=== PATIENT | female | born 1945 | race Caucasian/White ===

== ENCOUNTER 2019-09-15 14:24 | Inpatient (IN) | payer MEDICARE, OTHER ==
[2019-09-15] MEDS ORDERED: Diltiazem 125 MG/25 ML ONE ×2 (14:43→20:25)
[2019-09-15] MEDS ORDERED: Magnesium 2 GM/50 ML BAG (IN WATER) ONE (15:08)
[2019-09-15] MEDS ORDERED: Ondansetron PF 4 MG/2 ML Vial IVP PRN ×2 (15:43→22:23)
[2019-09-15] MEDS ORDERED: Acetaminophen 650 MG Suppository PR PRN ×2 (15:43→22:23)
[2019-09-15] MEDS ORDERED: Ondansetron ODT 4 MG TAB PO PRN ×2 (15:43→22:23)
[2019-09-15] MEDS ORDERED: HYDROcodone/Acetaminophen 5/325 mg Tablet PO PRN ×4 (15:43→22:23)
[2019-09-15] MEDS ORDERED: Acetaminophen 325 MG TAB PO PRN (15:43)
--- NOTE | 2019-09-15 15:55 | PDOC.HHP ---
Hospitalist HPI - History of Present Illness palpitations History of Present Illness: Case of an 73y/o female with pmhx of htn, ba, oa, afib, systolic chf, non ischemic cardiomyopathy who comes to hospital due to palpitations. patient refers she was on her usual state of health until 3 days ago when she started to notice irregular and fast heartbeats. initially there where just episodes that lasted a few minutes but its started to last longer and be more common. today patient decided to come for evaluation because she has been having palpitations non stop since the morning that is associated with sob and palpitations denies n/v or diaphoresis Hospitalist ROS - Review of Systems All other systems reviewed; all pertinent +/- noted in HPI/Subj Hospitalist History - Past Medical History Cardiac: reports: AFIB, CAD, CHF, HTN, Valve insufficiency Pulmonary: reports: asthma - Past Surgical History Past Surgical History: reports: , Tubal Ligation, Tonsillectomy - Family History Family History: reports: cardiac disorder - Social History Smoking Status: Never smoker Alcohol: reports: None Drugs: reports: none Living Situation: With Family Occupation: retired Activity level: independent ambulation - Exam General Appearance: NAD, awake alert Eye: PERRL, anicteric sclera ENT: normocephalic atraumatic, no oropharyngeal lesions Neck: supple, symmetric, no JVD, no thyromegaly Heart: irregular Heart - other findings: tachycardic Respiratory: CTAB, no wheezes, no rales, no ronchi Gastrointestinal: soft, non-tender, non-distended, normal bowel sounds Extremities: no cyanosis, no clubbing, no edema Skin: normal turgor, no lesions Neurological: cranial nerve grossly intact, normal sensation to touch Musculoskeletal: normal tone, normal strength Psychiatric: normal affect, normal behavior, A&O x 3 Hospitalist Results - EKG Interpretation EKG: afib in rvr Hospitalist H&P A/P - Problem (1) Atrial fibrillation with rapid ventricular response Code(s): I48.91 - UNSPECIFIED ATRIAL FIBRILLATION Status: Acute (2) Asthma Code(s): J45.909 - UNSPECIFIED ASTHMA, UNCOMPLICATED Status: Active (3) Chronic kidney disease stage 2 Code(s): N18.2 - CHRONIC KIDNEY DISEASE, STAGE 2 (MILD) Status: Chronic (4) Renovascular hypertension Code(s): I15.0 - RENOVASCULAR HYPERTENSION Status: Chronic (5) Systolic heart failure Code(s): I50.20 - UNSPECIFIED SYSTOLIC (CONGESTIVE) HEART FAILURE Status: Chronic - Plan Plan: 73y/o female who presents with afib in RVR for 3 days of duration - cardiac monitoring w tele - diltiazem drip - lovenox full AC - 2d echo -cardiology consult -continue home meds for chronic conditions - serial troponins, follow trend
[2019-09-15 15:59] LABS: Troponin I 0.079 ng/mL (< 0.028)
[2019-09-15] MEDS ORDERED: Diltiazem 125 MG in Sodium Chloride 0.9% 100 ML IVPB SCH (16:00)
[2019-09-15 19:14] LABS: Troponin I 0.096 ng/mL (< 0.028)
[2019-09-15] MEDS ORDERED: Lisinopril 5 MG TAB PO SCH (21:00)
[2019-09-15] MEDS ORDERED: Enoxaparin Sodium 40 MG/0.4 ML SYRINGE SC SCH (21:00)
[2019-09-15] MEDS ORDERED: Enoxaparin Sodium 60 MG/0.6 ML SYRINGE SC SCH (22:30)
[2019-09-15] MEDS: Acetaminophen 325 MG TAB PO PRN (23:14)
[2019-09-16] MEDS: Aspirin 81 mg Enteric Coated Tablet PO SCH (08:16)
[2019-09-16] MEDS: Enoxaparin Sodium 60 MG/0.6 ML SYRINGE SC SCH ×2 (08:16→21:44)
[2019-09-16] MEDS ORDERED: Enoxaparin Sodium 40 MG/0.4 ML SYRINGE SC SCH (09:00)
[2019-09-16] MEDS ORDERED: Aspirin 81 mg Enteric Coated Tablet PO SCH (09:00)
[2019-09-16] MEDS: Diltiazem 125 MG in Sodium Chloride 0.9% 100 ML IVPB SCH ×2 (11:13→21:44)
[2019-09-16] MEDS ORDERED: Amiodarone 200 MG TAB PO SCH (11:40)
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
[2019-09-16] MEDS: Acetaminophen 325 MG TAB PO PRN (15:11)
[2019-09-16] MEDS: Amiodarone 200 MG TAB PO SCH ×2 (15:11→21:43)
--- NOTE | 2019-09-16 17:48 | PDOC.HOSPP ---
- Subjective Encounter Date: 09/16/19 Subjective: patient seen on f/u for afib in rvr, despite increasing drip overnight, pt continues to be in rvr. Does refers chest pain and sob has improved - Objective Vital Signs & Weight: Vital Signs (12 hours) Temp Pulse Resp BP Pulse Ox 09/16/19 15:14 98.3 F 128 H 18 132/73 98 09/16/19 11:15 98.1 F 117 H 18 136/70 98 09/16/19 06:58 97.6 F 133 H 18 109/65 95 Weight Admit Weight 109 lb 8 oz Weight 110 lb 11.2 oz I&O: 09/15/19 09/16/19 09/17/19 06:59 06:59 06:59 Intake Total 440 Balance 440 Hospitalist ROS - Review of Systems All other systems reviewed; all pertinent +/- noted in HPI/Subj - Medication Medications: Active Medications Generic Name Dose Route Start Last Admin Trade Name Freq PRN Reason Stop Dose Admin Acetaminophen 650 mg 09/15/19 22:22 09/16/19 15:11 Tylenol PO 650 mg Q4H PRN Administration Headache/Fever/Mild Pain (1-3) Amiodarone HCl 400 mg 09/16/19 15:00 09/16/19 15:11 Cordarone PO 400 mg TID NAPOLEON Administration Aspirin 81 mg 09/16/19 09:00 09/16/19 08:16 Ecotrin PO 81 mg DAILY NAPOLEON Administration Enoxaparin Sodium 50 mg 09/16/19 09:00 09/16/19 08:16 Lovenox SC 50 mg 0900,2100 NAP[facility]LEON Administration Diltiazem HCl 125 mg/ Sodium 125 mls @ 15 mls/hr 09/15/19 22:30 09/16/19 11: 13 Chloride IVPB 125 mls INF NAPOLEON Administration Protocol - Exam General Appearance: awake alert Eye: PERRL, anicteric sclera ENT: normocephalic atraumatic, no oropharyngeal lesions Neck: supple, symmetric, no JVD Heart: irregular Heart - other findings: tachycardic Respiratory: CTAB, no wheezes, no rales Gastrointestinal: soft, non-tender, non-distended Extremities: no cyanosis, no clubbing Skin: normal turgor, no lesions Neurological: cranial nerve grossly intact, normal sensation to touch Musculoskeletal: normal tone, normal strength Psychiatric: normal affect, normal behavior Hosp A/P (1) Atrial fibrillation with rapid ventricular response Code(s): I48.91 - UNSPECIFIED ATRIAL FIBRILLATION Status: Acute (2) Asthma Code(s): J45.909 - UNSPECIFIED ASTHMA, UNCOMPLICATED Status: Active (3) Chronic kidney disease stage 2 Code(s): N18.2 - CHRONIC KIDNEY DISEASE, STAGE 2 (MILD) Status: Chronic (4) Renovascular hypertension Code(s): I15.0 - RENOVASCULAR HYPERTENSION Status: Chronic (5) Systolic heart failure Code(s): I50.20 - UNSPECIFIED SYSTOLIC (CONGESTIVE) HEART FAILURE Status: Chronic - Plan - continue with diltiazem drip still on rvr - cardiology on board, following recommendations - pending echo report -amiodarone added - troponin elevated but stable likely leak from increased HR - full AC w lovenox - continue home meds for chronic conditions
[2019-09-16] MEDS ORDERED: Lisinopril 5 MG TAB PO SCH (21:00)
[2019-09-16] MEDS ORDERED: Furosemide 20 MG/2 ML VIAL SLOW IVP SCH (22:15)
[2019-09-16] MEDS ORDERED: Furosemide 40 MG/4 ML VIAL SLOW IVP SCH (22:30)
[2019-09-16 22:32] LABS: Actual Bicarbonate (HCO3a) 20.5 mEq/L (22-28); Base Excess (BEa) -4.1 mEq/L (-2.0 to +3.0); CO2 Tension 35.7 mmHg (35.0-45.0); Calcium, Ionized (arterial) 1.08 mmol/L (1.12-1.30); Carboxyhemoglobin (COHb) 0.9 gm% (0.0-3.0); Hemoglobin (Hb) 12.4 g/dL (12.0-16.0); Potassium - ABG Lab 3.67 mmol/L (3.70-5.30); pH, Arterial 7.38 (7.35-7.45)
[2019-09-16 22:37] LABS: O2 Tension (PaO2), arterial 48.8 mmHg (> 70.0)
[2019-09-16 22:38] LABS: Puncture Site RRA
[2019-09-16 22:39] LABS: ALV-art Gradient 163.255 (0-20)
[2019-09-16] MEDS ORDERED: Digoxin 0.5 MG/2 ML AMP SLOW IVP SCH (23:15)
--- NOTE | 2019-09-17 01:51 | PDOC.EVN ---
Event Note - Event Note Event Note: Night nurse, Liya, noted that patient was hypoxic when she took over care. O2 NC was off the patient but even with it on, she was still hypoxic. CXR and ABG ordered, and patient was transferred to [facility] and placed on Bipap. Discussed with Dr. Goode, agrees with plan.
[2019-09-17 04:26] LABS: Anion Gap 14 mmol/L (10-20); BUN (Urea Nitrogen) 46 mg/dL (9.8-20.1); Calc. Creatinine Clearance 41 mL/min (70-130); Calcium 8.2 mg/dL (7.8-10.44); Carbon Dioxide 25 mmol/L (23-31); Chloride 98 mmol/L (98-107); Estimated GFR-MDRD 55; Glucose 142 mg/dL (83-110); Potassium 3.1 mmol/L (3.5-5.1); Sodium 134 mmol/L (136-145)
[2019-09-17 05:30] LABS: Band 2 % (5-11); Hemoglobin 12.9 g/dL (12.0-16.0); Lymphocytes 9 % (21-51); MDiff Complete? YES; Mean Corpuscular HGB CONC 34.2 g/dL (32.0-36.0); Mean Corpuscular Hemoglobin 29.3 pg (27.0-31.0); Mean Corpuscular Volume 85.7 fL (78.0-98.0); Mean Platelet Volume 9.8 fL (7.4-10.4); Monocytes 8 % (0-10); Neutrophil 81 % (42-75); Platelet Count 213 thou/uL (130-400); Platelet Morphology Comment Appears Adequate; RBC Distribution Width 14.3 % (11.5-14.5); White Blood Cell (WBC) Count 8.7 thou/uL (4.8-10.8)
--- NOTE | 2019-09-17 07:28 | RAD ---
PORTABLE CHEST: Date: 09/16/2019 PROVIDED CLINICAL HISTORY: Dyspnea. FINDINGS: Comparison with 09/15/2019. Cardiac silhouette remains enlarged. There is development of right lower lung zone air space disease. Blunting of the right costophrenic angle has also developed in the interim. Emphysematous changes ar e redemonstrated. There is no evidence for pneumothorax. IMPRESSION: 1. Development of right basilar air space disease, which could reflect pneumonia or aspiration. 2. Development of right pleural fluid. POS: BRIDGET[place]
[2019-09-17] MEDS: Potassium Chloride 20 MEQ TAB PO SCH ×2 (08:22→11:19)
[2019-09-17] MEDS: Aspirin 81 mg Enteric Coated Tablet PO SCH (08:22)
[2019-09-17] MEDS: Enoxaparin Sodium 60 MG/0.6 ML SYRINGE SC SCH ×2 (08:23→20:15)
[2019-09-17] MEDS: Spironolactone 25 MG TAB PO SCH (08:23)
[2019-09-17] MEDS: Amiodarone 200 MG TAB PO SCH ×3 (08:23→20:15)
[2019-09-17] MEDS ORDERED: Furosemide 40 MG TAB PO SCH (09:00)
[2019-09-17] MEDS ORDERED: Ketorolac Tromethamine 30 MG/ML VIAL IVP SCH (09:00)
--- NOTE | 2019-09-17 09:16 | PRG ---
DATE OF SERVICE: 09/17/2019 SUBJECTIVE: Ms. Castano became much more short of breath last night, had to be moved to the intermediate care unit. Chest x-ray looks like she is in congestive heart failure. She responded to intravenous diuretics. She is on a nasal cannula now, but is feeling better. She had a good urine output with the diuretic. She is wearing a diaper. OBJECTIVE: VITAL SIGNS: Her blood pressure 115/70, pulse is 100 to 110 and it is irregular. LUNGS: A few basilar rales. CARDIAC: Irregularly irregular. ABDOMEN: Soft and nontender. EXTREMITIES: No edema. She does complain of severe right shoulder pain, it sounds musculoskeletal, not cardiac. ASSESSMENT: 1. Cardiomyopathy, severe. 2. Atrial fibrillation, persistent. 3. Shoulder pain, musculoskeletal. 4. Congestive heart failure, systolic and diastolic, acute on chronic, improving this morning. PLAN: 1. Continue diuresis. 2. Continue amiodarone. 3. Continue Cardizem at prior reduced dose if heart rate decreases. 4. Give her extra Lasix today. We will follow with you. Cardioversion next week. We will do COVID screening and she will need a HERBERT 1st. Job ID: [id number]
[2019-09-17] MEDS ORDERED: Furosemide 40 MG/4 ML VIAL SLOW IVP SCH (12:00)
[2019-09-17] MEDS: Diltiazem 125 MG in Sodium Chloride 0.9% 100 ML IVPB SCH (12:56)
--- NOTE | 2019-09-17 14:05 | PDOC.HOSPP ---
- Subjective Encounter Date: 09/17/19 Encounter Time: 08:00 non-verbal Subjective: overnight, hypoxic requiring escalation to HFNC. CXR showing right low field patchy infiltrates. This morning, feeling and breathing well on HFNC. denies chest pain, palpitations, pleuritic pain, cough, sputum prodcution. - Objective Vital Signs & Weight: Vital Signs (12 hours) Temp Pulse Ox 09/17/19 11:47 97.6 F 09/17/19 08:00 93 L 09/17/19 07:46 97.6 F 09/17/19 07:36 96 09/17/19 03:57 97.8 F 09/17/19 02:23 93 L Weight Admit Weight 109 lb 8 oz Weight 110 lb 11.2 oz Most Recent Monitor Data Heart Rate from ECG 81 NIBP 108/80 NIBP BP-Mean 89 Respiration from ECG 20 SpO2 92 I&O: 09/16/19 09/17/19 09/18/19 06:59 06:59 06:59 Intake Total 440 283 Balance 440 283 Result Diagrams: 09/17/19 03:55 09/17/19 03:55 Hospitalist ROS - Review of Systems Constitutional: denies: fever, chills, sweats Respiratory: reports: SOB with excertion. denies: cough, dry, shortness of breath, hemoptysis, pleuritic pain, sputum, wheezing Cardiovascular: denies: chest pain, palpitations, orthopnea Gastrointestinal: denies: nausea, vomiting, abdominal pain - Medication Medications: Active Medications Generic Name Dose Route Start Last Admin Trade Name Freq PRN Reason Stop Dose Admin Acetaminophen 650 mg 09/15/19 22:22 09/16/19 15:11 Tylenol PO 650 mg Q4H PRN Administration Headache/Fever/Mild Pain (1-3) Hydrocodone Bitart/Acetaminophen 1 tab 09/15/19 22:23 09/16/19 21:44 [place] 5/325 PO 1 tab Q4H PRN Administration Moderate Pain (4-6) Amiodarone HCl 400 mg 09/16/19 15:00 09/17/19 08:23 Cordarone PO 400 mg TID NAPOLEON Administration Aspirin 81 mg 09/16/19 09:00 09/17/19 08:22 Ecotrin PO 81 mg DAILY NAPOLEON Administration Enoxaparin Sodium 50 mg 09/16/19 09:00 09/17/19 08:23 Lovenox SC 50 mg 0900,2100 [facility] Administration Diltiazem HCl 125 mg/ Sodium 125 mls @ 15 mls/hr 09/15/19 22:30 09/17/19 12: 56 Chloride IVPB 125 mls INF NAPOLEON Administration Protocol Lisinopril 7.5 mg 09/16/19 21:00 09/16/19 21:50 Zestril PO Not Given HS [facility] Ondansetron HCl 4 mg 09/15/19 22:23 09/16/19 21:43 Zofran Odt PO 4 mg Q6H PRN Administration Nausea/Vomiting Spironolactone 25 mg 09/17/19 09:00 09/17/19 08:23 Aldactone PO 25 mg DAILY [facility] Administration - Exam General Appearance: NAD, awake alert Heart: no murmur, no gallops, irregular Heart - other findings: afib, HR 100-110s Respiratory: no wheezes, no ronchi Respiratory - other findings: b/l inspiratory rales,midfield lower;right lung sounds reduced midfield Gastrointestinal: soft, non-tender, non-distended Extremities: no edema Psychiatric: normal affect, normal behavior, A&O x 3 Hosp A/P - Plan #hypoxemia #afib w/ RVR #arrythmia-indced heart failure worsening hypoxemia likely due to arrhythmia induced HF resulting in flash pulm edema and right pleural effusion rate better controlled -continue diuresis as per cardiology -rate control as per cardiology -strict I/O -try to wean HFNC #shoulder pain -positional, subacute, unlikely cardiac etiology -has bursitis in past, on exam, c/w musculoskeletal, likely subacute on chronic osteoarthritis/tendonitis -antinflammatory toradol given x 1 -if doesn't improve, will start NSAID with PPI
[2019-09-17] MEDS ORDERED: Potassium Chloride 20 MEQ TAB PO SCH (17:00)
[2019-09-17 18:26] LABS: Potassium 4.4 mmol/L (3.5-5.1)
[2019-09-18] MEDS: Diltiazem 125 MG in Sodium Chloride 0.9% 100 ML IVPB SCH ×2 (03:09→16:28)
[2019-09-18 04:31] LABS: Anion Gap 14 mmol/L (10-20); BUN (Urea Nitrogen) 42 mg/dL (9.8-20.1); Calc. Creatinine Clearance 49 mL/min (70-130); Calcium 8.3 mg/dL (7.8-10.44); Carbon Dioxide 23 mmol/L (23-31); Chloride 99 mmol/L (98-107); Estimated GFR-MDRD 67; Glucose 99 mg/dL (83-110); Potassium 4.4 mmol/L (3.5-5.1); Sodium 132 mmol/L (136-145)
--- NOTE | 2019-09-18 08:04 | PDOC.HOSPP ---
- Subjective Encounter Date: 09/18/19 Encounter Time: 08:00 Subjective: no overnight events. This morning, feeling about the same, remains on HFNC. HR in 100-110s despite reducing cardizem drip 15->10mg due to hypotension. Pending COVID-19 rule out for subsequent HERBERT - Objective Vital Signs & Weight: Vital Signs (12 hours) Temp Pulse Ox 09/18/19 07:33 95 09/18/19 07:06 98.2 F 09/18/19 03:42 97.2 F L 09/17/19 23:28 98.1 F Weight Admit Weight 109 lb 8 oz Weight 110 lb 11.2 oz Most Recent Monitor Data Heart Rate from ECG 113 NIBP 103/72 NIBP BP-Mean 82 Respiration from ECG 18 SpO2 95 I&O: 09/17/19 09/18/19 09/19/19 06:59 06:59 06:59 Intake Total 283 1752 Output Total 1800 Balance 283 -48 Result Diagrams: 09/17/19 03:55 09/18/19 03:27 Hospitalist ROS - Review of Systems Constitutional: denies: fever, chills, sweats, weakness, malaise, other Respiratory: denies: cough, dry, shortness of breath, pleuritic pain, sputum, wheezing Cardiovascular: denies: chest pain, palpitations, orthopnea Gastrointestinal: denies: nausea, vomiting, abdominal pain - Medication Medications: Active Medications Generic Name Dose Route Start Last Admin Trade Name Freq PRN Reason Stop Dose Admin Acetaminophen 650 mg 09/15/19 22:22 09/16/19 15:11 Tylenol PO 650 mg Q4H PRN Administration Headache/Fever/Mild Pain (1-3) Hydrocodone Bitart/Acetaminophen 1 tab 09/15/19 22:23 09/16/19 21:44 [place] 5/325 PO 1 tab Q4H PRN Administration Moderate Pain (4-6) Amiodarone HCl 400 mg 09/16/19 15:00 09/17/19 20:15 Cordarone PO 400 mg TID NAPOLEON Administration Aspirin 81 mg 09/16/19 09:00 09/17/19 08:22 Ecotrin PO 81 mg DAILY [facility]ON Administration Enoxaparin Sodium 50 mg 09/16/19 09:00 09/17/19 20:15 Lovenox SC 50 mg 0900,2100 [facility] Administration Diltiazem HCl 125 mg/ Sodium 125 mls @ 10 mls/hr 09/15/19 22:30 09/18/19 03: 09 Chloride IVPB 125 mls INF NAPOLEON Administration Protocol Lisinopril 7.5 mg 09/16/19 21:00 09/16/19 21:50 Zestril PO Not Given HS [facility]ON Ondansetron HCl 4 mg 09/15/19 22:23 09/16/19 21:43 Zofran Odt PO 4 mg Q6H PRN Administration Nausea/Vomiting Spironolactone 25 mg 09/17/19 09:00 09/17/19 08:23 Aldactone PO 25 mg DAILY N[facility]OLEON Administration - Exam General Appearance: NAD, awake alert Eye: PERRL, anicteric sclera Neck: no JVD Heart: no murmur, no gallops, irregular Heart - other findings: HR 100-110s Respiratory: no wheezes, no ronchi Respiratory - other findings: right midfield inspiratory rales, lower field reduced sounds; improved Gastrointestinal: soft, non-tender, non-distended Extremities: no edema Psychiatric: normal affect, normal behavior, A&O x 3 Hosp A/P - Plan #acute hypoxemic respiratory failure #afib w/ RVR #arrythmia-indced heart failure worsening hypoxemia likely due to arrhythmia induced HF resulting in flash pulm edema (09/16) CXR (09/17) worsening b/l patchy opacities, right pleural effusion; considering pleural effusion likely due to HF, may respond to diuresis Had to reduce cardizem drip dosage due to hypotension pending HERBERT and later this week cardioversion -continue diuresis as per cardiology; lovenox -rate control as per cardiology -strict I/O -try to wean HFNC #chronic hyponatremia -likely a result of appropriate ADH response due to volume contraction related to diuresis based on azotemia -currently being diuresed per cardiology -defer to cardiology; considering deescalating diuresis #shoulder pain -improved (09/17) -positional, subacute, unlikely cardiac etiology -reports bursitis in past; on exam, c/w musculoskeletal, likely subacute on chronic osteoarthritis/tendonitis -antinflammatory toradol given x 1 -if doesn't improve, start NSAID with PPI Full code ELOS 3 midnights GI PPx: no Ix
[2019-09-18] MEDS: Amiodarone 200 MG TAB PO SCH ×3 (08:31→21:22)
[2019-09-18] MEDS: Enoxaparin Sodium 60 MG/0.6 ML SYRINGE SC SCH ×2 (08:32→21:22)
[2019-09-18] MEDS: Aspirin 81 mg Enteric Coated Tablet PO SCH (08:32)
[2019-09-18] MEDS: Furosemide 20 MG/2 ML VIAL SLOW IVP SCH (08:33)
[2019-09-18] MEDS: Spironolactone 25 MG TAB PO SCH (08:33)
--- NOTE | 2019-09-18 11:14 | PRG ---
DATE OF SERVICE: 09/18/2019 SUBJECTIVE: Ms. Castano is sitting up in a chair. She is on high-flow oxygen. She is breathing okay. No chest pain. She is still somewhat short of breath. OBJECTIVE: VITAL SIGNS: Her blood pressure is about 100 systolic, pulse is 100 to 120, it is atrial fibrillation. LUNGS: Clear, but there are decreased breath sounds in the right base. CARDIAC: Irregularly irregular. ABDOMEN: Soft, nontender. DIAGNOSTIC DATA: Chest x-ray looks like a right pleural effusion, still have some pulmonary vascular congestion. ASSESSMENT: 1. Congestive heart failure, systolic/diastolic combined, acute on chronic, slowly improving. 2. Atrial fibrillation, rate is still high. PLAN: 1. Continue diuresis. 2. Continue amiodarone. 3. Continue Cardizem, trying to gradually reduce dose. 4. Tentatively plan for transesophageal echo and cardioversion on Thursday. She is being loaded with amiodarone to try to reduce the risk of recurrent atrial fibrillation. Job ID: [id number]
--- NOTE | 2019-09-18 11:22 | RAD ---
SINGLE VIEW CHEST: HISTORY: Ventilated patient with respiratory failure. COMPARISON: 09/15/19 FINDINGS: A single view of the chest shows an enlarged but stable cardiomediastinal silhouette. There has been development of an opacity in the right lung base with adjacent pleural effusion. A small left pleural effusion may also be present. IMPRESSION: Right lower lobe infiltrate and bilateral pleural effusions. POS: EAA
[2019-09-18] MEDS ORDERED: Furosemide 20 MG/2 ML VIAL SLOW IVP SCH (18:00)
[2019-09-18] MEDS ORDERED: Lisinopril 5 MG TAB PO SCH (21:00)
[2019-09-19 04:37] LABS: Anion Gap 12 mmol/L (10-20); BUN (Urea Nitrogen) 40 mg/dL (9.8-20.1); Calc. Creatinine Clearance 43 mL/min (70-130); Calcium 8.1 mg/dL (7.8-10.44); Carbon Dioxide 30 mmol/L (23-31); Chloride 99 mmol/L (98-107); Estimated GFR-MDRD 58; Glucose 91 mg/dL (83-110); Magnesium 2.2 mg/dL (1.6-2.6); Phosphorus 2.9 mg/dL (2.3-4.7); Potassium 3.6 mmol/L (3.5-5.1); Sodium 137 mmol/L (136-145)
[2019-09-19] MEDS: Diltiazem 125 MG in Sodium Chloride 0.9% 100 ML IVPB SCH ×2 (06:24→20:04)
--- NOTE | 2019-09-19 08:02 | PRG ---
DATE OF SERVICE: 09/19/2019 SUBJECTIVE: Ms. Castano is resting comfortably. She is still in atrial fibrillation with a rate of 110 beats per minute. OBJECTIVE: LUNGS: Clear. CARDIAC: Irregularly irregular. ABDOMEN: Soft, nontender. EXTREMITIES: No edema. ASSESSMENT: 1. Persistent atrial fibrillation. 2. Congestive heart failure, systolic and diastolic mixed. PLAN: Proceed with transesophageal echo and cardioversion tomorrow. Discussed risks including an injury to the mouth or esophagus. Need for pacemaker insertion. Irregular heart rhythm as well as stroke. She understands and wished to proceed. Job ID: [id number]
[2019-09-19] MEDS ORDERED: Potassium Chloride 20 MEQ TAB PO SCH (09:00)
[2019-09-19] MEDS: Enoxaparin Sodium 60 MG/0.6 ML SYRINGE SC SCH ×2 (09:46→20:34)
[2019-09-19] MEDS: Amiodarone 200 MG TAB PO SCH ×3 (09:47→20:33)
[2019-09-19] MEDS: Furosemide 20 MG/2 ML VIAL SLOW IVP SCH (09:47)
[2019-09-19] MEDS: Aspirin 81 mg Enteric Coated Tablet PO SCH (09:48)
[2019-09-19] MEDS: Spironolactone 25 MG TAB PO SCH (09:48)
--- NOTE | 2019-09-19 10:32 | PDOC.HOSPP ---
- Subjective Encounter Date: 09/19/19 Encounter Time: 08:00 Subjective: no overnight events. Endorses improved breathing. afib HR 110-130s. borderline hypotensive. pending HERBERT and cardioversion - Objective Vital Signs & Weight: Vital Signs (12 hours) Temp 09/19/19 07:27 98.0 F 09/19/19 03:33 98.2 F 09/18/19 23:31 98.2 F Weight Admit Weight 109 lb 8 oz Weight 110 lb 11.2 oz Most Recent Monitor Data Heart Rate from ECG 107 NIBP 102/75 NIBP BP-Mean 84 Respiration from ECG 19 SpO2 96 I&O: 09/18/19 09/19/19 09/20/19 06:59 06:59 06:59 Intake Total 2262 380 Output Total 2150 1525 Balance 112 -1145 Result Diagrams: 09/17/19 03:55 09/19/19 03:49 Hospitalist ROS - Review of Systems Constitutional: denies: chills, sweats Respiratory: reports: shortness of breath. denies: cough, dry, pleuritic pain, sputum, wheezing Cardiovascular: denies: chest pain, palpitations, edema Gastrointestinal: denies: nausea, vomiting, abdominal pain, diarrhea - Medication Medications: Active Medications Generic Name Dose Route Start Last Admin Trade Name Freq PRN Reason Stop Dose Admin Acetaminophen 650 mg 09/15/19 22:22 09/16/19 15:11 Tylenol PO 650 mg Q4H PRN Administration Headache/Fever/Mild Pain (1-3) Hydrocodone Bitart/Acetaminophen 1 tab 09/15/19 22:23 09/16/19 21:44 [place] 5/325 PO 1 tab Q4H PRN Administration Moderate Pain (4-6) Amiodarone HCl 400 mg 09/16/19 15:00 09/19/19 09:47 Cordarone PO 400 mg TID NAPOLEON Administration Aspirin 81 mg 09/16/19 09:00 09/19/19 09:48 Ecotrin PO 81 mg DAILY [facility] Administration Enoxaparin Sodium 50 mg 09/16/19 09:00 09/19/19 09:46 Lovenox SC 50 mg 0900,2100 [facility] Administration Furosemide 20 mg 09/18/19 09:00 09/19/19 09:47 Lasix SLOW IVP 20 mg DAILY [facility]ON Administration Diltiazem HCl 125 mg/ Sodium 125 mls @ 10 mls/hr 09/15/19 22:30 09/19/19 06: 24 Chloride IVPB 125 mls INF NAPOLEON Administration Protocol Ondansetron HCl 4 mg 09/15/19 22:23 09/16/19 21:43 Zofran Odt PO 4 mg Q6H PRN Administration Nausea/Vomiting Potassium Chloride 40 meq 09/19/19 09:00 09/19/19 09:48 K-Dur PO 09/19/19 11:00 40 meq NOW NAPOLEON Administration Spironolactone 25 mg 09/17/19 09:00 09/19/19 09:48 Aldactone PO 25 mg DAILY N[facility]OLEON Administration - Exam General Appearance: NAD, awake alert Neck: no JVD Heart: no murmur, no gallops, irregular Respiratory: no wheezes, no ronchi Respiratory - other findings: b/l inspiratory rales midfiled and caudally, reduced breath sounds right Gastrointestinal: soft, non-tender, non-distended Extremities: no edema Psychiatric: normal affect, normal behavior, A&O x 3 Hosp A/P - Plan #acute hypoxemic respiratory failure #afib w/ RVR #arrythmia-indced heart failure pending HERBERT and cardioversion remains hypervolemic; continue diuresis as per cardiology; hyponatremia resolved #shoulder pain -improved (09/17) -positional, subacute, unlikely cardiac etiology -antinflammatory toradol given x 1 -if doesn't improve, start NSAID with PPI Full code ELOS 2 midnights GI PPx: no Ix
[2019-09-19 13:40] LABS: SARS-CoV-2 MS2 Positive; SARS-CoV-2 N Gene Negative; SARS-CoV-2 S Gene Negative; SARS-CoV-2 orf1ab Negative
[2019-09-19] MEDS: Lisinopril 2.5 MG TAB PO SCH (20:33)
[2019-09-20 04:11] LABS: Hemoglobin 12.7 g/dL (12.0-16.0); Mean Corpuscular HGB CONC 32.2 g/dL (32.0-36.0); Mean Corpuscular Hemoglobin 28.3 pg (27.0-31.0); Mean Corpuscular Volume 87.9 fL (78.0-98.0); Mean Platelet Volume 9.5 fL (7.4-10.4); Platelet Count 207 thou/uL (130-400); Red Blood Cell (RBC) Count 4.47 mill/uL (4.20-5.40)
[2019-09-20 04:22] LABS: Anion Gap 12 mmol/L (10-20); BUN (Urea Nitrogen) 28 mg/dL (9.8-20.1); Calc. Creatinine Clearance 55 mL/min (70-130); Calcium 8.9 mg/dL (7.8-10.44); Carbon Dioxide 30 mmol/L (23-31); Chloride 98 mmol/L (98-107); Estimated GFR-MDRD 76; Glucose 90 mg/dL (83-110); Magnesium 2.3 mg/dL (1.6-2.6); Sodium 136 mmol/L (136-145)
[2019-09-20] MEDS ORDERED: PROPOFOL 20 ML ONE (09:03)
--- NOTE | 2019-09-20 09:37 | OP ---
DATE OF PROCEDURE: 09/20/2019 PROCEDURE PERFORMED: Transesophageal echocardiogram. INDICATION: A 73-year-old woman with paroxysmal atrial fibrillation. DESCRIPTION OF PROCEDURE: The patient was taken to the PACU. The patient was sedated by Anesthesiology. A transesophageal probe was placed into the distal esophagus and stomach. Echocardiographic images were obtained. The transesophageal probe was removed. FINDINGS: 1. Moderate decrease in left ventricular systolic function. 2. Marked biatrial enlargement. 3. Structurally normal aortic valve. 4. [id number] mitral regurgitation. 5. Khei-[id number]-[id number] tricuspid regurgitation. 6. No thrombus in the left atrium or left atrial appendage. 7. Atherosclerotic debris in the descending aorta. IMPRESSION: No formed thrombus in the left atrium or left atrial appendage. Job ID: [id number]
--- NOTE | 2019-09-20 09:40 | PRG ---
DATE OF SERVICE: 09/20/2019 SUBJECTIVE: Ms. Castano underwent cardioversion today. She is waking up from the anesthesia. She is now in sinus rhythm. OBJECTIVE: VITAL SIGNS: Most recent blood pressure prior to the cardioversion was 115/76. Pulse is 110, in which she is in atrial fibrillation, now it is in the 80s and sinus. LUNGS: Clear. CARDIAC: Normal S1 and normal S2. ABDOMEN: Soft and nontender. EXTREMITIES: No edema. The patient does have markedly enlarged left atrium. ASSESSMENT: 1. Atrial fibrillation, persistent with successful cardioversion. 2. Congestive heart failure, systolic-diastolic combined. 3. Previous cardiac catheterization with no obstructive coronary artery disease, normal coronaries by Dr. Langford in 2013. PLAN: 1. Continue amiodarone. 2. Stop Cardizem. 3. Continue diuresis. 4. We will need a LifeVest prior to be being discharged home. Job ID: [id number]
--- NOTE | 2019-09-20 10:51 | PDOC.HOSPP ---
- Subjective Encounter Date: 09/20/19 Encounter Time: 09:00 Subjective: no overnight events. this morning, s/p cardioversion in sinus, deescalated to NC , feeling and breathing well. Has no complaints. - Objective Vital Signs & Weight: Vital Signs (12 hours) Temp Pulse Ox 09/20/19 07:57 97 09/20/19 07:38 97.5 F L 09/20/19 04:00 98.0 F 09/20/19 00:00 98.2 F Weight Admit Weight 109 lb 8 oz Weight 107 lb 2 oz Most Recent Monitor Data Heart Rate from ECG 108 NIBP 115/76 NIBP BP-Mean 89 Respiration from ECG 18 SpO2 97 I&O: 09/19/19 09/20/19 09/21/19 06:59 06:59 06:59 Intake Total 380 1326 Output Total 1525 1750 Balance -1145 -455 Result Diagrams: 09/20/19 03:37 09/20/19 03:37 Hospitalist ROS - Review of Systems Constitutional: denies: fever, chills, sweats, weakness, malaise, other Respiratory: denies: cough, dry, shortness of breath, hemoptysis, SOB with excertion, pleuritic pain, sputum, wheezing, other Cardiovascular: denies: chest pain, palpitations, orthopnea, paroxysmal noc. dyspnea, edema, light headedness, other Gastrointestinal: denies: nausea, vomiting, abdominal pain, diarrhea, constipation, melena, hematochezia, other Genitourinary: denies: dysuria, frequency, incontinence, hematuria, retention, other - Medication Medications: Active Medications Generic Name Dose Route Start Last Admin Trade Name Freq PRN Reason Stop Dose Admin Acetaminophen 650 mg 09/15/19 22:22 09/16/19 15:11 Tylenol PO 650 mg Q4H PRN Administration Headache/Fever/Mild Pain (1-3) Hydrocodone Bitart/Acetaminophen 1 tab 09/15/19 22:23 09/16/19 21:44 [place] 5/325 PO 1 tab Q4H PRN Administration Moderate Pain (4-6) Amiodarone HCl 400 mg 09/16/19 15:00 09/19/19 20:33 Cordarone PO 400 mg TID NAPOLEON Administration Aspirin 81 mg 09/16/19 09:00 09/19/19 09:48 Ecotrin PO 81 mg DAILY NAPOLEON Administration Enoxaparin Sodium 50 mg 09/16/19 09:00 09/19/19 20:34 Lovenox SC 50 mg 0900,2100 NAPOLEON Administration Furosemide 20 mg 09/18/19 09:00 09/19/19 09:47 Lasix SLOW IVP 20 mg DAILY NAPOLEON Administration Lisinopril 2.5 mg 09/19/19 21:00 09/19/19 20:33 Zestril PO 2.5 mg HS NAPOLEON Administration Ondansetron HCl 4 mg 09/15/19 22:23 09/16/19 21:43 Zofran Odt PO 4 mg Q6H PRN Administration Nausea/Vomiting Spironolactone 25 mg 09/17/19 09:00 09/19/19 09:48 Aldactone PO 25 mg DAILY NAPOLEON Administration - Exam General Appearance: NAD, awake alert Eye: PERRL Neck: no JVD Heart: RRR, no murmur, no gallops, no rubs Respiratory: CTAB, no wheezes, no ronchi Respiratory - other findings: lower heath inspiratory rales Extremities: no edema Psychiatric: normal affect, normal behavior, A&O x 3 Hosp A/P - Plan #afib w/ RVR, now sinus s/p cardioversion #arrythmia-indced heart failure s/p cardioversion (09/19); in sinus HFNC -> NC pending life vest placement per cardiology Full code. Transfer to telemetry [facility] 1 midnight GI PPx: no Ix
[2019-09-20] MEDS: Enoxaparin Sodium 60 MG/0.6 ML SYRINGE SC SCH ×2 (10:52→21:04)
[2019-09-20] MEDS: Spironolactone 25 MG TAB PO SCH (10:52)
[2019-09-20] MEDS: Amiodarone 200 MG TAB PO SCH ×3 (10:52→21:04)
[2019-09-20] MEDS: Furosemide 20 MG/2 ML VIAL SLOW IVP SCH (10:52)
[2019-09-20] MEDS: Aspirin 81 mg Enteric Coated Tablet PO SCH (10:52)
--- NOTE | 2019-09-20 16:21 | CCLSPC ---
PROCEDURE: Cardioversion. PROCEDURE IN DETAIL: The patient was brought to the recovery area in a fasting state. Transesophageal echo revealed no evidence of any formed thrombus. The patient was given 200 joules direct current energy, synchronized and converted to sinus rhythm with PACs and sinus rhythm. CONCLUSION: Successful cardioversion. Job ID: [id number]
[2019-09-20] MEDS: Carvedilol 3.125 MG TAB PO SCH (17:43)
[2019-09-20] MEDS: Lisinopril 2.5 MG TAB PO SCH (21:04)
[2019-09-21 06:06] LABS: Anion Gap 9 mmol/L (10-20); BUN (Urea Nitrogen) 33 mg/dL (9.8-20.1); Calc. Creatinine Clearance 49 mL/min (70-130); Calcium 8.7 mg/dL (7.8-10.44); Carbon Dioxide 33 mmol/L (23-31); Chloride 100 mmol/L (98-107); Estimated GFR-MDRD 71; Glucose 83 mg/dL (83-110); Magnesium 2.3 mg/dL (1.6-2.6); Phosphorus 4.1 mg/dL (2.3-4.7); Potassium 4.4 mmol/L (3.5-5.1); Sodium 138 mmol/L (136-145)
[2019-09-21] MEDS: Spironolactone 25 MG TAB PO SCH (08:25)
[2019-09-21] MEDS: Carvedilol 3.125 MG TAB PO SCH (08:26)
[2019-09-21] MEDS: Enoxaparin Sodium 60 MG/0.6 ML SYRINGE SC SCH ×2 (08:26→20:31)
[2019-09-21] MEDS: Amiodarone 200 MG TAB PO SCH ×3 (08:26→20:31)
[2019-09-21] MEDS: Aspirin 81 mg Enteric Coated Tablet PO SCH (08:26)
[2019-09-21] MEDS: Furosemide 20 MG/2 ML VIAL SLOW IVP SCH (08:27)
[2019-09-21] MEDS ORDERED: Carvedilol 3.125 MG TAB PO SCH ×3 (09:44→21:00)
--- NOTE | 2019-09-21 09:59 | PRG ---
DATE OF SERVICE: 09/21/2019 SUBJECTIVE: Ms. Castano is doing well. She said she feels much better today. She is in normal sinus rhythm. She had successful cardioversion yesterday. OBJECTIVE: VITAL SIGNS: Blood pressure 134/69, pulse 80 and it is regular. LUNGS: Clear. CARDIAC: Normal S1, normal S2. ABDOMEN: Soft, nontender. EXTREMITIES: No edema. ASSESSMENT: 1. Congestive heart failure, systolic, acute on chronic, improved. 2. Persistent atrial fibrillation, status post successful cardioversion. 3. Nonischemic cardiomyopathy. PLAN: 1. She is still being loaded with amiodarone. 2. We will increase lisinopril dose. 3. Order LifeVest. 4. Tentatively plan to go home on Thursday. 5. Increase carvedilol dose. Job ID: [id number]
[2019-09-21] MEDS ORDERED: Carvedilol 6.25 MG TAB PO SCH ×2 (10:00→17:00)
[2019-09-21 14:27] VITALS: BMI 20.2
--- NOTE | 2019-09-21 14:52 | PDOC.HOSPP ---
- Subjective Encounter Date: 09/21/19 Encounter Time: 09:00 Subjective: no overnight events. This morning, feeling well and has no complaints. Remains in sinus. - Objective Vital Signs & Weight: Vital Signs (12 hours) Temp Pulse Resp BP BP Pulse Ox 09/21/19 11:39 72 110/68 09/21/19 11:34 134/85 09/21/19 08:00 97.5 F L 83 18 134/69 98 09/21/19 03:15 97.5 F L 77 18 116/72 97 Weight Admit Weight 109 lb 8 oz Weight 107 lb 2 oz Most Recent Monitor Data Heart Rate from ECG 85 NIBP 112/76 NIBP BP-Mean 88 Respiration from ECG 23 SpO2 99 I&O: 09/20/19 09/21/19 09/22/19 06:59 06:59 06:59 Intake Total 1326 50 Output Total 1750 1050 Balance -424 -1000 Result Diagrams: 09/20/19 03:37 09/21/19 04:28 Hospitalist ROS - Review of Systems Constitutional: denies: fever, chills, sweats, weakness, malaise, other Respiratory: denies: cough, dry, shortness of breath, hemoptysis, SOB with excertion, pleuritic pain, sputum, wheezing, other Cardiovascular: denies: chest pain, palpitations, orthopnea, paroxysmal noc. dyspnea, edema, light headedness, other Gastrointestinal: denies: nausea, vomiting, abdominal pain, diarrhea, constipation, melena, hematochezia, other - Medication Medications: Active Medications Generic Name Dose Route Start Last Admin Trade Name Freq PRN Reason Stop Dose Admin Acetaminophen 650 mg 09/15/19 22:22 09/16/19 15:11 Tylenol PO 650 mg Q4H PRN Administration Headache/Fever/Mild Pain (1-3) Hydrocodone Bitart/Acetaminophen 1 tab 09/15/19 22:23 09/16/19 21:44 [place] 5/325 PO 1 tab Q4H PRN Administration Moderate Pain (4-6) Amiodarone HCl 400 mg 09/16/19 15:00 09/21/19 08:26 Cordarone PO 400 mg TID NAPOLEON Administration Aspirin 81 mg 09/16/19 09:00 09/21/19 08:26 Ecotrin PO 81 mg DAILY NAPOLEON Administration Enoxaparin Sodium 50 mg 09/16/19 09:00 09/21/19 08:26 Lovenox SC 50 mg 0900,2100 NAPOLEON Administration Furosemide 20 mg 09/18/19 09:00 09/21/19 08:27 Lasix SLOW IVP 20 mg DAILY NAPOLEON Administration Ondansetron HCl 4 mg 09/15/19 22:23 09/16/19 21:43 Zofran Odt PO 4 mg Q6H PRN Administration Nausea/Vomiting Spironolactone 25 mg 09/17/19 09:00 09/21/19 08:25 Aldactone PO 25 mg DAILY NAPOLEON Administration - Exam General Appearance: NAD, awake alert Neck: no JVD Heart: RRR, no murmur, no gallops, no rubs Respiratory: CTAB, no wheezes, no ronchi, rales Respiratory - other findings: unchanged Gastrointestinal: soft, non-tender, non-distended, normal bowel sounds Extremities: no edema Psychiatric: normal affect, normal behavior, A&O x 3 Hosp A/P - Plan #afib w/ RVR, now sinus s/p cardioversion #arrythmia-indced heart failure s/p cardioversion (09/19); in sinus HFNC -> NC pending life vest placement per cardiology Full code. Transfer to telemetry [facility] 2 midnights per cardiology GI PPx: no Ix
[2019-09-21] MEDS: Lisinopril 5 MG TAB PO SCH (20:31)
[2019-09-21] MEDS: Carvedilol 6.25 MG TAB PO SCH (20:31)
[2019-09-21] MEDS ORDERED: Lisinopril 2.5 MG TAB PO SCH (21:00)
[2019-09-22 05:11] LABS: Anion Gap 12 mmol/L (10-20); BUN (Urea Nitrogen) 26 mg/dL (9.8-20.1); Calc. Creatinine Clearance 49 mL/min (70-130); Calcium 8.5 mg/dL (7.8-10.44); Carbon Dioxide 31 mmol/L (23-31); Chloride 98 mmol/L (98-107); Estimated GFR-MDRD 69; Glucose 90 mg/dL (83-110); Potassium 3.9 mmol/L (3.5-5.1); Sodium 137 mmol/L (136-145)
[2019-09-22] MEDS: Aspirin 81 mg Enteric Coated Tablet PO SCH (08:26)
[2019-09-22] MEDS: Amiodarone 200 MG TAB PO SCH ×3 (08:26→20:07)
[2019-09-22] MEDS: Carvedilol 6.25 MG TAB PO SCH ×2 (08:26→20:07)
[2019-09-22] MEDS: Enoxaparin Sodium 60 MG/0.6 ML SYRINGE SC SCH (08:27)
[2019-09-22] MEDS: Furosemide 20 MG/2 ML VIAL SLOW IVP SCH (08:27)
[2019-09-22] MEDS: Spironolactone 25 MG TAB PO SCH (08:27)
--- NOTE | 2019-09-22 10:05 | PRG ---
DATE OF SERVICE: 09/22/2019 SUBJECTIVE: Ms. Castano is feeling well. She has been up walking in the [place]. No complaints. She continues to be loaded with amiodarone. She is doing well with that. OBJECTIVE: VITAL SIGNS: Blood pressure 108/68, pulse . LUNGS: Clear. CARDIAC: Normal S1 and S2. ABDOMEN: Soft and nontender. EXTREMITIES: No edema. ASSESSMENT: 1. Congestive heart failure, systolic-diastolic combined, acute on chronic, improved. 2. Atrial fibrillation, persistent, status post cardioversion, doing well. PLAN: 1. Continue oral amiodarone. 2. Change from Lovenox to Eliquis. 3. Increase carvedilol. 4. Being fitted for LifeVest, home tomorrow is the plan. Job ID: [id number]
--- NOTE | 2019-09-22 11:49 | PDOC.HOSPP ---
- Subjective Encounter Date: 09/22/19 Encounter Time: 09:00 Subjective: no overnight events. this morning feeling and breathing well off nasal cannula. Ambulates with mild shortness of breath, improved compared to before. Pending life vest - Objective Vital Signs & Weight: Vital Signs (12 hours) Temp Pulse Resp BP Pulse Ox 09/22/19 07:15 97.5 F L 68 16 108/68 96 09/22/19 03:20 97.8 F 68 16 103/65 97 09/22/19 00:27 96 Weight Admit Weight 109 lb 8 oz Weight 108 lb 14.4 oz Most Recent Monitor Data Heart Rate from ECG 85 NIBP 112/76 NIBP BP-Mean 88 Respiration from ECG 23 SpO2 99 I&O: 09/21/19 09/22/19 09/23/19 06:59 06:59 06:59 Intake Total 50 1060 Output Total 1050 750 Balance -1000 310 Result Diagrams: 09/20/19 03:37 09/22/19 04:14 Hospitalist ROS - Review of Systems Constitutional: denies: fever, chills, sweats, weakness, malaise, other Respiratory: denies: cough, dry, shortness of breath, hemoptysis, SOB with excertion, pleuritic pain, sputum, wheezing, other Cardiovascular: denies: chest pain, palpitations, orthopnea, paroxysmal noc. dyspnea, edema, light headedness, other Gastrointestinal: denies: nausea, vomiting, abdominal pain, diarrhea, constipation, melena, hematochezia, other - Medication Medications: Active Medications Generic Name Dose Route Start Last Admin Trade Name Freq PRN Reason Stop Dose Admin Acetaminophen 650 mg 09/15/19 22:22 09/16/19 15:11 Tylenol PO 650 mg Q4H PRN Administration Headache/Fever/Mild Pain (1-3) Hydrocodone Bitart/Acetaminophen 1 tab 09/15/19 22:23 09/16/19 21:44 [place] 5/325 PO 1 tab Q4H PRN Administration Moderate Pain (4-6) Amiodarone HCl 400 mg 09/16/19 15:00 09/22/19 08:26 Cordarone PO 400 mg TID NAPOLEON Administration Aspirin 81 mg 09/16/19 09:00 09/22/19 08:26 Ecotrin PO 81 mg DAILY NAPOLEON Administration Lisinopril 5 mg 09/21/19 21:00 09/21/19 20:31 Zestril PO 5 mg HS NAPOLEON Administration Ondansetron HCl 4 mg 09/15/19 22:23 09/16/19 21:43 Zofran Odt PO 4 mg Q6H PRN Administration Nausea/Vomiting Spironolactone 25 mg 09/17/19 09:00 09/22/19 08:27 Aldactone PO 25 mg DAILY NAPOLEON Administration - Exam General Appearance: NAD, awake alert Eye: PERRL Neck: no JVD Heart: RRR, no murmur, no gallops, no rubs Respiratory: CTAB, no wheezes, no ronchi Respiratory - other findings: bibasilar inspiratory rales Gastrointestinal: soft, non-tender, non-distended, normal bowel sounds Extremities: no edema Psychiatric: normal affect, normal behavior, A&O x 3 Hosp A/P - Plan #afib w/ RVR, now sinus s/p cardioversion #arrythmia-indced heart failure s/p cardioversion (09/19); in sinus HFNC -> NC -> RA pending life vest placement per cardiology Full code. [facility] 1 midnights per cardiology GI PPx: no Ix
--- NOTE | 2019-09-22 17:39 | EKG ---
Test Reason : POST CARDIOVERSION Blood Pressure : / mmHG Vent. Rate : 071 BPM Atrial Rate : 071 BPM P-R Int : 208 ms QRS Dur : 104 ms QT Int : 424 ms P-R-T Axes : 052 -34 232 degrees QTc Int : 460 ms Normal sinus rhythm Left axis deviation Cannot rule out Anterior infarct (cited on or before 18-MAY-2013) T wave abnormality, consider inferolateral ischemia Abnormal ECG When compared with ECG of 18-MAY-2013 15:17, Significant changes have occurred Confirmed by DR. Swapnil BAUER ([id number]) on 09/22/2019 5:39:27 PM Referred By: JUANCARLOS Confirmed By:DR. Swapnil BAUER
[2019-09-22] MEDS: Apixaban 5 MG TAB PO SCH (20:06)
[2019-09-22] MEDS: Lisinopril 5 MG TAB PO SCH (20:07)
[2019-09-23] MEDS: Carvedilol 6.25 MG TAB PO SCH (08:38)
[2019-09-23] MEDS: Apixaban 5 MG TAB PO SCH (08:38)
[2019-09-23] MEDS: Spironolactone 25 MG TAB PO SCH (08:38)
[2019-09-23] MEDS: Aspirin 81 mg Enteric Coated Tablet PO SCH (08:38)
[2019-09-23] MEDS: Amiodarone 200 MG TAB PO SCH (08:38)
[2019-09-23] MEDS ORDERED: Furosemide 20 MG TAB PO SCH (09:00)
--- NOTE | 2019-09-23 09:24 | PRG ---
DATE OF SERVICE: 09/23/2019 SUBJECTIVE: Ms. Castano feels well. She has been fitted for a LifeVest. No chest pain or shortness of breath. OBJECTIVE: VITAL SIGNS: Blood pressure 125/71. Pulse 60 and it is regular. LUNGS: Clear. CARDIAC: Normal S1, normal S2. ASSESSMENT: 1. Congestive heart failure, systolic-diastolic combined, acute on chronic improved. 2. Atrial fibrillation, maintaining sinus rhythm. PLAN: 1. She is going to go home on amiodarone 200 mg twice a day for one month, then 200 mg once a day. 2. Apixaban 5 mg twice a day. 3. Stop aspirin. 4. Carvedilol 12.5 mg twice a day. 5. Lasix 20 mg a day. 6. Spironolactone 25 mg a day. 7. Follow up in 2 weeks with a base-met. Recommend echocardiogram in 6 weeks to see if ejection fraction is over 35%. If so, LifeVest could be discontinued. If not, she may need a LifeVest for three months to see if her ejection fraction improves over 35%. Aspirin has been stopped. She has no history of coronary artery disease. Previous catheter[place] [address] Langford, normal coronary arteries. Job ID: [id number]
--- NOTE | 2019-09-23 09:57 | DIS ---
DATE OF ADMISSION: 09/15/2019 DATE OF DISCHARGE: 09/23/2019 HOSPITAL COURSE: Ms. Castano is a 73-year-old female with medical history of hypertension, atrial fibrillation, heart failure with reduced ejection fraction, who came to the hospital because of palpitations. She was found to have atrial fibrillation with RVR. She was initially managed with medications; however, atrial fibrillation with RVR persisted. Cardiology was consulted and she underwent successful cardioversion. She remained in sinus rhythm after her cardioversion, breathing and oxygen saturation improved. She was discharged home hemodynamically stable, breathing and saturating well on room air. PHYSICAL EXAMINATION: VITAL SIGNS: Blood pressure 125/71, temperature 97.7, pulse 61, respiratory rate 18, oxygen saturation 93% on room air. GENERAL: Sitting comfortably, alert. EYES: PERRL. NECK: No JVD. HEART: Regular rate and rhythm. No murmurs, gallops, or rubs. RESPIRATORY: Clear to auscultation bilaterally. No wheezing, rales, or rhonchi. Positive for bibasilar inspiratory rales. GI: Soft, nontender, nondistended. Normal bowel sounds. EXTREMITIES: No edema. PSYCHIATRIC: Proper mood and affect. Alert and oriented x3. MEDICATION LIST: New medications: Apixaban 5 mg p.o. b.i.d. Modified medications: Coreg was increased to 12.5 p.o. b.i.d., Lasix was decreased to 20 mg daily, lisinopril was decreased to 10 mg p.o. daily. Discontinued medications: No discontinued medications. The patient was discharged with followup appointments with Dr. Morales, her school counsellor, as well as a primary care physician and heart failure clinics. Job ID: [id number]
[2019-09-23 11:25] VITALS: BP 126/74; TEMP 97.4
[2019-09-23] MEDS ORDERED: Amiodarone 200 MG TAB PO SCH (21:00)
[2019-09-23] MEDS ORDERED: Lisinopril 10 MG TAB PO SCH (21:00)
[2019-09-23] MEDS ORDERED: Lisinopril 5 MG TAB PO SCH (21:00)
--- NOTE | 2019-09-26 08:24 | PQF ---
MUMTAZ SHELTON ODALIS LUISPRESTON, MELBA [id number] [id number] CLINICAL DOCUMENTATION CLARIFICATION FORM: POST DISCHARGE Addendum to original discharge summary date: ____ Late entry note date: __ DATE: 09/26/2019 ATTN: Melba Garcia Please exercise your independent, professional judgment in responding to the clarification form. Clinical indicators are provided on the bottom of this form for your review Diagnosis: Acute on chronic systolic and diastolic CHF Present on Admission (POA): [ x ] Yes [ ] No [ ] Unable to determine Coding guidelines require hospitals to identify whether a diagnosis was present on admission (POA) or not. To accurately assign the appropriate POA indicator, this information must be clearly documented within the medical record. CLINICAL INDICATORS - SIGNS / SYMPTOMS / LABS PN 09/16 "congestive heart failure systolic and diastolic acute on chronic improving" PN 09/16 "Arrythmia induced heart failure" PN 09/16 "Chest Xray looks like she is in CHF" PN 09/15 "systolic CHF" ED Notes 09/14 "presented to the ER for SOB and tachycardia" Consult 09/15 "EF 15% to 20%" Chest Xray 09/15 "development of right pleural fluid" RISK FACTORS: 73 years old female-ED Notes 09/14 HTN-ED Notes 09/14 Afib-ED Notes 09/14 Non ischemic cardiomyopathy-HP 09/14 CAD-HP 09/14 CKD stage 2-HP 09/14 TREATMENT: Cardiology consult-HP 09/14 Chest Xray-Collected 09/15 BIPAP-Event Note 09/15 Cardioversion-Cardiac Cath 09/19 HERBERT-OP Note 09/19 Lasix 20mg IV-MAR 09/15 Lanoxin 0.125mg IV-JUN 02 (This form is maintained as a part of the permanent medical record) 2014 [email or web address]. All Rights Reserved [email or web address]
== END 2019-09-23 12:16 | disposition home or self-care (01) | DRG 291 ==
LOC: ERS 14:24 → 2NO 15:05 → ERS 20:36 → IMCU/EMU 09-17 00:12 → 2NO 09-20 15:44
PROVIDERS: ADMIT Internal Medicine; ATTEND Internal Medicine
PROC: 5A09357 Assistance with Respiratory Ventilation, Less than 24 Consecutive Hours, Continuous Positive Airway Pressure (ICD-10-PCS; 2019-09-17)
PROC: 5A2204Z Restoration of Cardiac Rhythm, Single (ICD-10-PCS; principal; 2019-09-20)
PROC: B24BZZ4 Ultrasonography of Heart with Aorta, Transesophageal (ICD-10-PCS; 2019-09-20)
DX: I13.0 Hypertensive heart and chronic kidney disease with heart failure and stage 1 through stage 4 chronic kidney disease, or unspecified chronic kidney disease (principal); I50.43 Acute on chronic combined systolic (congestive) and diastolic (congestive) heart failure; J96.01 Acute respiratory failure with hypoxia; I48.19 Other persistent atrial fibrillation; E87.1 Hypo-osmolality and hyponatremia; Z20.828 Contact with and (suspected) exposure to other viral communicable diseases; J44.9 Chronic obstructive pulmonary disease, unspecified; M19.90 Unspecified osteoarthritis, unspecified site; I42.8 Other cardiomyopathies; I25.10 Atherosclerotic heart disease of native coronary artery without angina pectoris; N18.2 Chronic kidney disease, stage 2 (mild); I15.0 Renovascular hypertension; M25.519 Pain in unspecified shoulder; Z90.49 Acquired absence of other specified parts of digestive tract; Z98.51 Tubal ligation status; Z88.2 Allergy status to sulfonamides; Z79.899 Other long term (current) drug therapy
CPT/HCPCS: 36415; 71045; 80048; 82805; 83735; 84100; 85007; 85027; 87635; 93005; 93010; 93306; 93312; 94660; 96365; 96366; 96368; 96376; J1160; J1650; J1885; J1940; J2704; J3475; J3490; Q0162; U0003

== ENCOUNTER 2022-07-09 13:22 | Inpatient (IN) | payer MEDICARE ==
[2022-07-09 16:03] VITALS: BMI 19.5
[2022-07-09] MEDS ORDERED: cefTRIAXone\\ROCEPHIN 1 GM in Sodium Chloride 0.9% 100 ML IVPB SCH (17:00)
[2022-07-09] MEDS ORDERED: hydrALAZINE 20 MG/ML VIAL SLOW IVP PRN (17:02)
[2022-07-09] MEDS ORDERED: Benzonatate 100 MG CAP PO PRN (17:02)
[2022-07-09 17:43] LABS: Magnesium 1.7 mg/dL (1.6-2.6); Potassium 3.9 mmol/L (3.5-5.1)
[2022-07-09 17:48] LABS: Troponin I 0.149 ng/mL (< 0.028)
[2022-07-09] MEDS ORDERED: Azithromycin 500 MG in Sodium Chloride 0.9% 250 ML 250 ML IVPB SCH (18:00)
[2022-07-09] MEDS ORDERED: Ondansetron PF 4 MG/2 ML Vial IVP PRN (19:40)
[2022-07-09] MEDS ORDERED: Lisinopril 20 MG TAB PO SCH (21:00)
[2022-07-09] MEDS ORDERED: Famotidine 20 MG TAB PO SCH (21:00)
[2022-07-09] MEDS: Amiodarone 200 MG TAB PO SCH (21:14)
[2022-07-10 05:03] LABS: #Basophils 0.1 thou/uL (0.0-0.2); #Eosinphils 0.2 thou/uL (0.0-0.7); #Lymphocytes 1.6 thou/uL (1.20-3.40); #Monocytes 0.7 thou/uL (0.11-0.59); %Basophils 1.1 % (0.0-1.0); %Eosinophils 2.6 % (0.0-10.0); %Lymphocytes 24.2 % (21.0-51.0); %Monocytes 11.2 % (0.0-10.0); %Neutrophils 60.9 % (42.0-75.0); Hemoglobin 13.3 g/dL (12.0-16.0); Mean Corpuscular HGB CONC 32.4 g/dL (32.0-36.0); Mean Corpuscular Hemoglobin 29.1 pg (27.0-31.0); Mean Corpuscular Volume 89.8 fl (78.0-98.0); Platelet Count 235 10x3/uL (130-400); RBC Distribution Width 12.7 % (11.5-14.5); Red Blood Cell (RBC) Count 4.56 mill/uL (4.20-5.40); White Blood Cell (WBC) Count 6.5 10x3/uL (4.8-10.8)
[2022-07-10 05:27] LABS: Anion Gap 13 mmol/L (10-20); BUN (Urea Nitrogen) 34 mg/dL (9.8-20.1); Calc. Creatinine Clearance 35 mL/min (70-130); Calcium 8.8 mg/dL (7.8-10.44); Carbon Dioxide 27 mmol/L (23-31); Chloride 101 mmol/L (98-107); Estimated GFR 67; Glucose 78 mg/dL (83-110); Potassium 3.3 mmol/L (3.5-5.1); Sodium 138 mmol/L (136-145)
[2022-07-10] MEDS: Acetaminophen 325 MG TAB PO PRN ×2 (05:56→17:10)
[2022-07-10 07:01] LABS: Troponin I 0.126 ng/mL (< 0.028)
[2022-07-10] MEDS ORDERED: Potassium Bicarbonate/Cit Ac 20 MEQ TAB PO SCH (08:45)
[2022-07-10] MEDS: Spironolactone 25 MG TAB PO SCH (08:47)
[2022-07-10] MEDS: Amiodarone 200 MG TAB PO SCH ×3 (08:47→20:28)
[2022-07-10] MEDS: Carvedilol 25 MG TAB PO SCH ×2 (08:47→16:24)
[2022-07-10] MEDS: Furosemide 20 MG TAB PO SCH ×2 (08:49→14:29)
[2022-07-10] MEDS ORDERED: Carvedilol 25 MG TAB PO SCH (09:00)
[2022-07-10] MEDS ORDERED: Furosemide 20 MG TAB PO SCH (09:00)
[2022-07-10] MEDS: Famotidine 20 MG TAB PO SCH (20:28)
[2022-07-10] MEDS: Lisinopril 10 MG TAB PO SCH (20:30)
[2022-07-11 04:59] LABS: #Basophils 0.1 thou/uL (0.0-0.2); #Eosinphils 0.4 thou/uL (0.0-0.7); #Lymphocytes 1.7 thou/uL (1.20-3.40); #Monocytes 0.5 thou/uL (0.11-0.59); #Neutrophils 2.9 thou/uL (1.40-6.50); %Basophils 1.2 % (0.0-1.0); %Eosinophils 7.4 % (0.0-10.0); %Monocytes 9.1 % (0.0-10.0); %Neutrophils 52.4 % (42.0-75.0); Hemoglobin 12.3 g/dL (12.0-16.0); Mean Corpuscular HGB CONC 32.8 g/dL (32.0-36.0); Mean Corpuscular Hemoglobin 29.3 pg (27.0-31.0); Mean Corpuscular Volume 89.2 fl (78.0-98.0); Mean Platelet Volume 9.1 fL (7.4-10.4); Platelet Count 199 10x3/uL (130-400); RBC Distribution Width 12.7 % (11.5-14.5); Red Blood Cell (RBC) Count 4.21 mill/uL (4.20-5.40); White Blood Cell (WBC) Count 5.5 10x3/uL (4.8-10.8)
[2022-07-11 05:24] LABS: Anion Gap 13 mmol/L (10-20); BUN (Urea Nitrogen) 41 mg/dL (9.8-20.1); Calc. Creatinine Clearance 43 mL/min (70-130); Calcium 8.7 mg/dL (7.8-10.44); Carbon Dioxide 26 mmol/L (23-31); Chloride 102 mmol/L (98-107); Estimated GFR 67; Glucose 94 mg/dL (83-110); Potassium 3.6 mmol/L (3.5-5.1); Sodium 137 mmol/L (136-145)
[2022-07-11] MEDS ORDERED: Potassium Chloride 20 MEQ TAB PO SCH (09:00)
[2022-07-11] MEDS: Furosemide 20 MG TAB PO SCH ×2 (10:27→15:05)
[2022-07-11] MEDS: Amiodarone 200 MG TAB PO SCH ×3 (10:27→20:59)
[2022-07-11] MEDS: Spironolactone 25 MG TAB PO SCH (10:27)
[2022-07-11] MEDS: Carvedilol 25 MG TAB PO SCH ×2 (10:27→17:08)
[2022-07-11] MEDS: Acetaminophen 325 MG TAB PO PRN ×2 (10:31→17:08)
[2022-07-11] MEDS: Ondansetron ODT 4 MG TAB PO PRN (18:08)
[2022-07-11] MEDS: Famotidine 20 MG TAB PO SCH (20:59)
[2022-07-11] MEDS: Lisinopril 10 MG TAB PO SCH (20:59)
[2022-07-12] MEDS ORDERED: Amiodarone 200 MG TAB PO SCH (09:00)
[2022-07-12] MEDS: Furosemide 20 MG TAB PO SCH (09:51)
[2022-07-12] MEDS: Spironolactone 25 MG TAB PO SCH (09:51)
[2022-07-12] MEDS: Carvedilol 25 MG TAB PO SCH (09:51)
[2022-07-12 11:19] VITALS: BP 99/68; TEMP 97
[2022-07-12] MEDS: Ondansetron ODT 4 MG TAB PO PRN (11:19)
[2022-07-12] MEDS: Acetaminophen 325 MG TAB PO PRN (11:19)
== END 2022-07-12 13:03 | disposition home or self-care (01) | DRG 314 ==
LOC: 2NO 14:58
PROVIDERS: ADMIT Internal Medicine; ATTEND Internal Medicine
DX: I42.9 Cardiomyopathy, unspecified (principal); I50.23 Acute on chronic systolic (congestive) heart failure; J96.21 Acute and chronic respiratory failure with hypoxia; I47.20 Ventricular tachycardia, unspecified; I42.8 Other cardiomyopathies; I48.91 Unspecified atrial fibrillation; E87.6 Hypokalemia; M19.90 Unspecified osteoarthritis, unspecified site; I11.0 Hypertensive heart disease with heart failure; I08.1 Rheumatic disorders of both mitral and tricuspid valves; Z98.890 Other specified postprocedural states; Z88.2 Allergy status to sulfonamides; Z79.899 Other long term (current) drug therapy; Z98.51 Tubal ligation status; Z88.0 Allergy status to penicillin; Z90.49 Acquired absence of other specified parts of digestive tract; Z88.8 Allergy status to other drugs, medicaments and biological substances
CPT/HCPCS: 36415; 76700; 80048; 83735; 83880; 84484; 85025; 93005; 93010; 93306; 93798; J0456; J0696; J1650; J2405; J3490; J7050; Q0162

== ENCOUNTER 2023-03-15 07:00 | Inpatient (IN) | payer MEDICARE ==
[2023-03-15] MEDS ORDERED: Acetaminophen 325 MG TAB PO PRN (09:16)
[2023-03-15] MEDS ORDERED: Senokot S 8.6-50 MG TAB PO PRN (09:16)
[2023-03-15] MEDS ORDERED: Prochlorperazine Edisylate 10 MG in Sodium Chloride 0.9% 50 ML IVPB PRN (09:18)
[2023-03-15] MEDS ORDERED: Amiodarone 200 MG TAB PO SCH ×2 (09:21→21:00)
[2023-03-15] MEDS ORDERED: Electrolyte Replacement Protocol 1 EACH FS SCH (09:30)
[2023-03-15 10:01] LABS: Magnesium 1.9 mg/dL (1.6-2.6)
[2023-03-15 10:08] LABS: Troponin I 0.149 ng/mL (< 0.028)
[2023-03-15] MEDS ORDERED: Magnesium 2 GM/50 ML(in water) 2 GM in Premix 1 BAG IVPB SCH (11:15)
[2023-03-15 12:54] LABS: Troponin I 0.147 ng/mL (< 0.028)
[2023-03-15] MEDS: Ipratropium Bromide 2.5 ml Neb NEB SCH ×2 (13:00→19:33)
[2023-03-15] MEDS: Furosemide 40 MG/4 ML VIAL SLOW IVP SCH (13:18)
[2023-03-15] MEDS ORDERED: Digoxin 0.5 MG/2 ML AMP SLOW IVP SCH (16:00)
[2023-03-15] MEDS ORDERED: GUAIFENESIN SF SOLN 200 MG/10 ML UDCUP PO PRN (17:06)
[2023-03-15] MEDS ORDERED: Amiodarone 150 MG in Dextrose 5% in Water 100 ML IVPB SCH (19:30)
[2023-03-15] MEDS ORDERED: Metoprolol Tartrate 5 MG/5 ML VIAL IVP SCH (19:30)
[2023-03-15] MEDS ORDERED: Communication Order-Pharmacy FS SCH (19:38)
[2023-03-15] MEDS: Doxycycline 100 MG CAP PO SCH (19:57)
[2023-03-15 20:20] LABS: Hematocrit 38.9 % (36.0-47.0); Hemoglobin 12.4 g/dL (12.0-16.0); Platelet Count 348 10x3/uL (130-400)
[2023-03-15] MEDS: Amiodarone 450 MG in Dextrose 5% in Water 250 ML IVPB SCH (20:35)
[2023-03-15 20:43] LABS: ALT (SGPT) 335 U/L (8-55); AST (SGOT) 405 U/L (5-34); Albumin 3.2 g/dL (3.4-4.8); Alkaline Phosphatase 120 U/L (40-110); Anion Gap 15 mmol/L (10-20); BUN (Urea Nitrogen) 24 mg/dL (9.8-20.1); Bilirubin, Direct 0.3 mg/dL (0.1-0.3); Bilirubin, Total 0.6 mg/dL (0.2-1.2); Calc. Creatinine Clearance 38 mL/min (70-130); Calcium 8.4 mg/dL (7.8-10.44); Carbon Dioxide 30 mmol/L (23-31); Chloride 97 mmol/L (98-107); Estimated GFR 56; Globulin 3.3 g/dL (2.4-3.5); Glucose 97 mg/dL (83-110); Magnesium 2.1 mg/dL (1.6-2.6); Potassium 3.5 mmol/L (3.5-5.1); Protein, Total 6.5 g/dL (5.8-8.1); Sodium 138 mmol/L (136-145)
[2023-03-15] MEDS ORDERED: Lisinopril 10 MG TAB PO SCH (21:00)
[2023-03-15] MEDS ORDERED: Potassium Chloride 20 MEQ TAB PO SCH (21:30)
[2023-03-16] MEDS: Ipratropium Bromide 2.5 ml Neb NEB SCH ×3 (00:51→13:20)
[2023-03-16 02:34] LABS: #Basophils 0.1 thou/uL (0.0-0.2); #Eosinphils 0.2 thou/uL (0.0-0.7); #Monocytes 0.7 thou/uL (0.11-0.59); #Neutrophils 8.5 thou/uL (1.40-6.50); %Basophils 1.1 % (0.0-1.0); %Eosinophils 2.1 % (0.0-10.0); %Lymphocytes 11.9 % (21.0-51.0); %Monocytes 6.6 % (0.0-10.0); %Neutrophils 77.7 % (42.0-75.0); Hematocrit 40.4 % (36.0-47.0); Hemoglobin 12.5 g/dL (12.0-16.0); Mean Corpuscular HGB CONC 30.9 g/dL (32.0-36.0); Mean Corpuscular Hemoglobin 27.8 pg (27.0-31.0); Mean Corpuscular Volume 89.8 fl (78.0-98.0); Mean Platelet Volume 11.1 fL (7.4-10.4); Platelet Count 364 10x3/uL (130-400); RBC Distribution Width 13.4 % (11.5-14.5); White Blood Cell (WBC) Count 10.9 10x3/uL (4.8-10.8)
[2023-03-16 04:26] LABS: ALT (SGPT) 324 U/L (8-55); AST (SGOT) 337 U/L (5-34); Alkaline Phosphatase 117 U/L (40-110); Anion Gap 18 mmol/L (10-20); BUN (Urea Nitrogen) 29 mg/dL (9.8-20.1); Bilirubin, Total 0.6 mg/dL (0.2-1.2); Calc. Creatinine Clearance 33 mL/min (70-130); Calcium 8.2 mg/dL (7.8-10.44); Carbon Dioxide 27 mmol/L (23-31); Chloride 96 mmol/L (98-107); Estimated GFR 48; Globulin 3.3 g/dL (2.4-3.5); Glucose 100 mg/dL (83-110); Magnesium 2.2 mg/dL (1.6-2.6); Potassium 3.9 mmol/L (3.5-5.1); Protein, Total 6.3 g/dL (5.8-8.1); Sodium 137 mmol/L (136-145)
[2023-03-16] MEDS: Furosemide 40 MG/4 ML VIAL SLOW IVP SCH ×2 (05:21→13:45)
[2023-03-16] MEDS: Amiodarone 450 MG in Dextrose 5% in Water 250 ML IVPB SCH ×2 (05:21→20:58)
[2023-03-16] MEDS ORDERED: Furosemide 20 MG TAB PO SCH (09:00)
[2023-03-16] MEDS ORDERED: Spironolactone 25 MG TAB PO SCH (09:00)
[2023-03-16] MEDS ORDERED: Non-Formulary Item 1 EACH (Carvedilol [Coreg] 12.5 MG Tablet) PO SCH (09:00)
[2023-03-16] MEDS: Doxycycline 100 MG CAP PO SCH ×2 (09:03→20:58)
[2023-03-16] MEDS: Aspirin 81 mg Enteric Coated Tablet PO SCH (09:15)
[2023-03-16 10:14] VITALS: BMI 20.9
[2023-03-16] MEDS ORDERED: Ipratropium Bromide 2.5 ml Neb NEB PRN (13:39)
[2023-03-17] MEDS: Furosemide 40 MG/4 ML VIAL SLOW IVP SCH (04:46)
[2023-03-17 05:40] LABS: Anion Gap 14 mmol/L (10-20); BUN (Urea Nitrogen) 35 mg/dL (9.8-20.1); Calc. Creatinine Clearance 33 mL/min (70-130); Carbon Dioxide 32 mmol/L (23-31); Chloride 95 mmol/L (98-107); Estimated GFR 47; Glucose 109 mg/dL (83-110); Potassium 3.6 mmol/L (3.5-5.1); Sodium 137 mmol/L (136-145)
[2023-03-17 05:44] LABS: Calcium 8.7 mg/dL (7.8-10.44)
[2023-03-17] MEDS ORDERED: Ketamine In 0.9 % NaCl 50 MG/5 ML SYRINGE ONE (07:30)
[2023-03-17] MEDS ORDERED: Midazolam HCl 2 mg/2 ml Vial ONE (07:42)
[2023-03-17] MEDS ORDERED: PROPOFOL 200 MG/20 ML VIAL ONE (08:10)
[2023-03-17] MEDS ORDERED: Potassium Chloride 20 MEQ TAB PO SCH (08:30)
[2023-03-17] MEDS ORDERED: Amiodarone 200 MG TAB PO SCH (09:00)
[2023-03-17] MEDS: Aspirin 81 mg Enteric Coated Tablet PO SCH (09:49)
[2023-03-17] MEDS: Doxycycline 100 MG CAP PO SCH ×2 (09:49→20:23)
[2023-03-17] MEDS: Carvedilol 6.25 MG TAB PO SCH (16:37)
[2023-03-17] MEDS: Apixaban 5 MG TAB PO SCH (20:23)
[2023-03-17] MEDS: Amiodarone 200 MG TAB PO SCH (20:27)
[2023-03-18 04:50] LABS: #Basophils 0.1 thou/uL (0.0-0.2); #Eosinphils 0.3 thou/uL (0.0-0.7); #Monocytes 0.7 thou/uL (0.11-0.59); #Neutrophils 6.6 thou/uL (1.40-6.50); %Basophils 0.8 % (0.0-1.0); %Eosinophils 3.5 % (0.0-10.0); %Neutrophils 72.2 % (42.0-75.0); Hematocrit 37.9 % (36.0-47.0); Hemoglobin 11.9 g/dL (12.0-16.0); Mean Corpuscular HGB CONC 31.4 g/dL (32.0-36.0); Mean Corpuscular Hemoglobin 27.7 pg (27.0-31.0); Mean Corpuscular Volume 88.3 fl (78.0-98.0); Mean Platelet Volume 11.4 fL (7.4-10.4); Platelet Count 401 10x3/uL (130-400); RBC Distribution Width 13.6 % (11.5-14.5); Red Blood Cell (RBC) Count 4.29 mill/uL (4.20-5.40); White Blood Cell (WBC) Count 9.2 10x3/uL (4.8-10.8)
[2023-03-18 07:48] LABS: Anion Gap 14 mmol/L (10-20); BUN (Urea Nitrogen) 47 mg/dL (9.8-20.1); Calc. Creatinine Clearance 32 mL/min (70-130); Calcium 8.8 mg/dL (7.8-10.44); Carbon Dioxide 31 mmol/L (23-31); Chloride 96 mmol/L (98-107); Estimated GFR 46; Glucose 107 mg/dL (83-110); Potassium 4.5 mmol/L (3.5-5.1); Sodium 136 mmol/L (136-145)
[2023-03-18] MEDS ORDERED: Spironolactone 25 MG TAB PO SCH (08:00)
[2023-03-18] MEDS: Carvedilol 6.25 MG TAB PO SCH ×2 (08:32→17:05)
[2023-03-18] MEDS: Aspirin 81 mg Enteric Coated Tablet PO SCH (10:02)
[2023-03-18] MEDS: Amiodarone 200 MG TAB PO SCH (10:03)
[2023-03-18] MEDS: Apixaban 5 MG TAB PO SCH (10:03)
[2023-03-18 15:53] VITALS: TEMP 98
[2023-03-18 17:21] VITALS: BP 113/77
== END 2023-03-18 19:21 | disposition home or self-care (01) | DRG 280 ==
LOC: INTOOBSV 07:00 → 2SW 07:00 → OBSVTOIN 03-16 10:31
PROVIDERS: ADMIT Student in an Organized Health Care Education/Training Program; ATTEND Hospitalist
PROC: B24BZZ4 Ultrasonography of Heart with Aorta, Transesophageal (ICD-10-PCS; principal; 2023-03-17)
PROC: 5A2204Z Restoration of Cardiac Rhythm, Single (ICD-10-PCS; 2023-03-17)
DX: I13.0 Hypertensive heart and chronic kidney disease with heart failure and stage 1 through stage 4 chronic kidney disease, or unspecified chronic kidney disease (principal); I50.23 Acute on chronic systolic (congestive) heart failure; I21.A1 Myocardial infarction type 2; J96.21 Acute and chronic respiratory failure with hypoxia; I48.19 Other persistent atrial fibrillation; I48.92 Unspecified atrial flutter; I47.29 Other ventricular tachycardia; N18.2 Chronic kidney disease, stage 2 (mild); J44.9 Chronic obstructive pulmonary disease, unspecified; I70.0 Atherosclerosis of aorta; I08.1 Rheumatic disorders of both mitral and tricuspid valves; R79.89 Other specified abnormal findings of blood chemistry; Z88.0 Allergy status to penicillin; Z88.2 Allergy status to sulfonamides; Z88.8 Allergy status to other drugs, medicaments and biological substances; Z79.899 Other long term (current) drug therapy; Z79.82 Long term (current) use of aspirin; Z98.891 History of uterine scar from previous surgery; Z90.49 Acquired absence of other specified parts of digestive tract; Z90.89 Acquired absence of other organs; Z82.49 Family history of ischemic heart disease and other diseases of the circulatory system; I42.8 Other cardiomyopathies
CPT/HCPCS: 36415; 71045; 80048; 80053; 80076; 83735; 84443; 85014; 85018; 85025; 85049; 92960; 93005; 93010; 93312; 94640; 96372; 96374; 96375; 96376; G0378; J0282; J0780; J1160; J1650; J1940; J2250; J2704; J3475; J3490; J7070

== ENCOUNTER 2023-04-14 19:39 | Inpatient (IN) | payer MEDICARE ==
[2023-04-14 21:44] LABS: Troponin I 0.108 ng/mL (< 0.028)
[2023-04-14] MEDS ORDERED: Ipratropium/Albuterol 3 ML NEB NEB PRN (22:04)
[2023-04-14] MEDS ORDERED: Calcium Carbonate 500 MG ChewTAB PO PRN (22:05)
[2023-04-14 22:16] LABS: #Basophils 0.1 thou/uL (0.0-0.2); #Monocytes 0.7 thou/uL (0.11-0.59); %Basophils 0.7 % (0.0-1.0); %Eosinophils 0.5 % (0.0-10.0); %Lymphocytes 10.2 % (21.0-51.0); %Monocytes 9.5 % (0.0-10.0); %Neutrophils 78.8 % (42.0-75.0); Hemoglobin 13.6 g/dL (12.0-16.0); Mean Corpuscular HGB CONC 31.6 g/dL (32.0-36.0); Mean Corpuscular Hemoglobin 25.2 pg (27.0-31.0); Mean Corpuscular Volume 79.6 fl (78.0-98.0); Platelet Count 250 10x3/uL (130-400); RBC Distribution Width 15.3 % (11.5-14.5); White Blood Cell (WBC) Count 7.7 10x3/uL (4.8-10.8)
[2023-04-14 22:27] LABS: Anion Gap 15 mmol/L (10-20); BUN (Urea Nitrogen) 25 mg/dL (9.8-20.1); Calc. Creatinine Clearance 0 mL/min (70-130); Calcium 8.6 mg/dL (7.8-10.44); Carbon Dioxide 28 mmol/L (23-31); Chloride 98 mmol/L (98-107); Estimated GFR 75; Glucose 69 mg/dL (83-110); Potassium 3.7 mmol/L (3.5-5.1); Sodium 137 mmol/L (136-145)
[2023-04-15 00:12] LABS: Troponin I 0.102 ng/mL (< 0.028)
[2023-04-15 00:41] VITALS: BMI 20.1
[2023-04-15] MEDS ORDERED: Acetaminophen 325 MG TAB ONE (03:24)
[2023-04-15] MEDS: Acetaminophen 325 MG TAB PO PRN (03:27)
[2023-04-15 04:52] LABS: Troponin I 0.099 ng/mL (< 0.028)
[2023-04-15] MEDS ORDERED: Furosemide 40 MG (4 mL) VIAL ONE (06:18)
[2023-04-15] MEDS: Furosemide 40 MG (4 mL) VIAL SLOW IVP SCH ×2 (06:21→16:15)
[2023-04-15] MEDS ORDERED: Carvedilol 6.25 MG TAB ONE (08:46)
[2023-04-15] MEDS ORDERED: Famotidine 20 MG TAB ONE (08:46)
[2023-04-15] MEDS ORDERED: Apixaban 5 MG TAB ONE (08:46)
[2023-04-15] MEDS ORDERED: Amiodarone 200 MG TAB ONE (08:46)
[2023-04-15] MEDS: Famotidine 20 MG TAB PO SCH ×2 (09:11→20:58)
[2023-04-15] MEDS: Carvedilol 3.125 MG TAB PO SCH ×2 (09:11→20:58)
[2023-04-15] MEDS: Apixaban 5 MG TAB PO SCH ×2 (09:11→20:58)
[2023-04-15] MEDS: Amiodarone 200 MG TAB PO SCH ×2 (09:11→20:57)
[2023-04-15] MEDS ORDERED: Ondansetron ODT 8 MG TAB ONE (09:13)
[2023-04-15] MEDS ORDERED: Ondansetron ODT 4 MG TAB ONE (09:14)
[2023-04-15] MEDS: Ondansetron ODT 4 MG TAB PO PRN (09:16)
[2023-04-15] MEDS: Spironolactone 25 MG TAB PO SCH (10:24)
[2023-04-15] MEDS ORDERED: Lisinopril 10 MG TAB PO SCH (21:00)
[2023-04-16] MEDS: Furosemide 40 MG (4 mL) VIAL SLOW IVP SCH (07:50)
[2023-04-16] MEDS: Spironolactone 25 MG TAB PO SCH (08:40)
[2023-04-16] MEDS: Amiodarone 200 MG TAB PO SCH ×2 (08:40→20:30)
[2023-04-16] MEDS: Apixaban 5 MG TAB PO SCH ×2 (08:40→20:29)
[2023-04-16] MEDS: Carvedilol 3.125 MG TAB PO SCH (08:40)
[2023-04-16] MEDS: Famotidine 20 MG TAB PO SCH ×2 (08:40→20:28)
[2023-04-16 08:50] LABS: #Basophils 0.1 thou/uL (0.0-0.2); #Eosinphils 0.3 thou/uL (0.0-0.7); #Monocytes 0.6 thou/uL (0.11-0.59); %Basophils 0.8 % (0.0-1.0); %Eosinophils 3.2 % (0.0-10.0); %Lymphocytes 10.7 % (21.0-51.0); %Monocytes 7.9 % (0.0-10.0); %Neutrophils 77.1 % (42.0-75.0); Hemoglobin 15.1 g/dL (12.0-16.0); Mean Corpuscular HGB CONC 31.5 g/dL (32.0-36.0); Mean Corpuscular Hemoglobin 25.3 pg (27.0-31.0); Mean Corpuscular Volume 80.4 fl (78.0-98.0); Mean Platelet Volume 10.6 fL (7.4-10.4); Platelet Count 273 10x3/uL (130-400); RBC Distribution Width 15.7 % (11.5-14.5); Red Blood Cell (RBC) Count 5.97 mill/uL (4.20-5.40); White Blood Cell (WBC) Count 7.8 10x3/uL (4.8-10.8)
[2023-04-16] MEDS ORDERED: Magnesium 2 GM/50 ML(in water) 2 GM in Premix 1 BAG IVPB SCH (10:00)
[2023-04-16] MEDS ORDERED: Potassium Chloride 20 MEQ TAB PO SCH (10:00)
[2023-04-16] MEDS: Albumin 25% 25 GM (100 mL) BOT IVPB SCH ×3 (11:00→23:48)
[2023-04-16] MEDS: Lisinopril 10 MG TAB PO SCH (20:29)
[2023-04-17] MEDS: Albumin 25% 25 GM (100 mL) BOT IVPB SCH (05:52)
[2023-04-17 06:06] LABS: #Basophils 0.1 thou/uL (0.0-0.2); #Eosinphils 0.3 thou/uL (0.0-0.7); #Monocytes 0.8 thou/uL (0.11-0.59); #Neutrophils 5.3 thou/uL (1.40-6.50); %Basophils 0.9 % (0.0-1.0); %Eosinophils 4.5 % (0.0-10.0); %Monocytes 10.7 % (0.0-10.0); %Neutrophils 70.6 % (42.0-75.0); Hematocrit 40.8 % (36.0-47.0); Hemoglobin 12.6 g/dL (12.0-16.0); Mean Corpuscular HGB CONC 30.9 g/dL (32.0-36.0); Mean Corpuscular Hemoglobin 25.3 pg (27.0-31.0); Mean Corpuscular Volume 81.8 fl (78.0-98.0); Mean Platelet Volume 10.3 fL (7.4-10.4); Platelet Count 217 10x3/uL (130-400); RBC Distribution Width 15.5 % (11.5-14.5); Red Blood Cell (RBC) Count 4.99 mill/uL (4.20-5.40); White Blood Cell (WBC) Count 7.5 10x3/uL (4.8-10.8)
[2023-04-17 06:22] LABS: Anion Gap 15 mmol/L (10-20); BUN (Urea Nitrogen) 44 mg/dL (9.8-20.1); Calc. Creatinine Clearance 35 mL/min (70-130); Carbon Dioxide 27 mmol/L (23-31); Chloride 98 mmol/L (98-107); Estimated GFR 52; Glucose 94 mg/dL (83-110); Magnesium 2.5 mg/dL (1.6-2.6); Potassium 4.1 mmol/L (3.5-5.1); Sodium 136 mmol/L (136-145)
[2023-04-17] MEDS: Spironolactone 25 MG TAB PO SCH (08:24)
[2023-04-17] MEDS: Apixaban 5 MG TAB PO SCH ×2 (08:24→22:33)
[2023-04-17] MEDS: Amiodarone 200 MG TAB PO SCH ×2 (08:24→22:33)
[2023-04-17] MEDS ORDERED: Carvedilol 3.125 MG TAB PO SCH (09:03)
[2023-04-17] MEDS: Carvedilol 3.125 MG TAB PO SCH (16:50)
[2023-04-17] MEDS: Famotidine 20 MG TAB PO SCH (22:34)
[2023-04-17] MEDS: Lisinopril 10 MG TAB PO SCH (22:34)
[2023-04-18 06:32] LABS: #Basophils 0.1 thou/uL (0.0-0.2); #Eosinphils 0.4 thou/uL (0.0-0.7); #Monocytes 0.8 thou/uL (0.11-0.59); #Neutrophils 4.3 thou/uL (1.40-6.50); %Basophils 0.9 % (0.0-1.0); %Eosinophils 6.3 % (0.0-10.0); %Lymphocytes 16.7 % (21.0-51.0); %Monocytes 11.8 % (0.0-10.0); Hematocrit 40.7 % (36.0-47.0); Hemoglobin 12.6 g/dL (12.0-16.0); Mean Corpuscular Hemoglobin 25.1 pg (27.0-31.0); Mean Corpuscular Volume 81.1 fl (78.0-98.0); Mean Platelet Volume 10.9 fL (7.4-10.4); Platelet Count 239 10x3/uL (130-400); RBC Distribution Width 15.5 % (11.5-14.5); Red Blood Cell (RBC) Count 5.02 mill/uL (4.20-5.40); White Blood Cell (WBC) Count 6.7 10x3/uL (4.8-10.8)
[2023-04-18 06:59] LABS: Anion Gap 13 mmol/L (10-20); BUN (Urea Nitrogen) 44 mg/dL (9.8-20.1); Calc. Creatinine Clearance 35 mL/min (70-130); Calcium 9.1 mg/dL (7.8-10.44); Carbon Dioxide 28 mmol/L (23-31); Chloride 99 mmol/L (98-107); Estimated GFR 52; Glucose 94 mg/dL (83-110); Magnesium 2.6 mg/dL (1.6-2.6); Sodium 136 mmol/L (136-145)
[2023-04-18] MEDS: Amiodarone 200 MG TAB PO SCH ×2 (09:22→20:42)
[2023-04-18] MEDS: Spironolactone 25 MG TAB PO SCH (09:22)
[2023-04-18] MEDS: Carvedilol 3.125 MG TAB PO SCH ×2 (09:23→16:22)
[2023-04-18] MEDS: Ondansetron ODT 4 MG TAB PO PRN (15:21)
[2023-04-18] MEDS: Acetaminophen 325 MG TAB PO PRN (19:28)
[2023-04-18] MEDS: Lisinopril 10 MG TAB PO SCH (20:43)
[2023-04-18] MEDS: Famotidine 20 MG TAB PO SCH (20:44)
[2023-04-19 05:21] LABS: #Basophils 0.1 thou/uL (0.0-0.2); #Eosinphils 0.3 thou/uL (0.0-0.7); #Monocytes 0.5 thou/uL (0.11-0.59); #Neutrophils 3.9 thou/uL (1.40-6.50); %Basophils 1.3 % (0.0-1.0); %Lymphocytes 12.1 % (21.0-51.0); %Monocytes 8.4 % (0.0-10.0); Hematocrit 42.3 % (36.0-47.0); Mean Corpuscular HGB CONC 30.7 g/dL (32.0-36.0); Mean Corpuscular Hemoglobin 24.7 pg (27.0-31.0); Mean Corpuscular Volume 80.4 fl (78.0-98.0); Mean Platelet Volume 10.6 fL (7.4-10.4); Platelet Count 212 10x3/uL (130-400); RBC Distribution Width 15.7 % (11.5-14.5); Red Blood Cell (RBC) Count 5.26 mill/uL (4.20-5.40); White Blood Cell (WBC) Count 5.4 10x3/uL (4.8-10.8)
[2023-04-19 05:40] LABS: Anion Gap 14 mmol/L (10-20); BUN (Urea Nitrogen) 36 mg/dL (9.8-20.1); Calc. Creatinine Clearance 36 mL/min (70-130); Calcium 9.3 mg/dL (7.8-10.44); Carbon Dioxide 28 mmol/L (23-31); Chloride 101 mmol/L (98-107); Estimated GFR 57; Glucose 95 mg/dL (83-110); Magnesium 2.5 mg/dL (1.6-2.6); Potassium 4.5 mmol/L (3.5-5.1); Sodium 138 mmol/L (136-145)
[2023-04-19] MEDS: Spironolactone 25 MG TAB PO SCH (09:18)
[2023-04-19] MEDS: Amiodarone 200 MG TAB PO SCH ×2 (09:18→20:30)
[2023-04-19] MEDS: Carvedilol 3.125 MG TAB PO SCH ×2 (09:18→16:19)
[2023-04-19] MEDS ORDERED: Guaifenesin DM 100-10/5 ML UDCUP PO PRN (17:31)
[2023-04-19] MEDS: Lisinopril 10 MG TAB PO SCH (20:30)
[2023-04-19] MEDS: Famotidine 20 MG TAB PO SCH (20:31)
[2023-04-20] MEDS: Carvedilol 3.125 MG TAB PO SCH ×2 (09:50→17:03)
[2023-04-20] MEDS: Amiodarone 200 MG TAB PO SCH ×2 (09:50→21:32)
[2023-04-20] MEDS: Spironolactone 25 MG TAB PO SCH (09:50)
[2023-04-20] MEDS ORDERED: Gentamicin 80 MG/2 ML VIAL ONE (13:08)
[2023-04-20] MEDS ORDERED: Lidocaine 1% (PF) 30 ML VIAL ONE (13:08)
[2023-04-20] MEDS ORDERED: Clindamycin/D5W 900 mg/50 ml Premix Bag ONE (13:08)
[2023-04-20] MEDS ORDERED: LevoFLOXacin D5W 500 mg (100 mL) BAG ONE (13:16)
[2023-04-20] MEDS ORDERED: Ketamine In 0.9 % NaCl 50 MG/5 ML SYRINGE ONE (15:01)
[2023-04-20] MEDS ORDERED: Midazolam HCl 2 mg/2 ml Vial ONE (15:03)
[2023-04-20] MEDS ORDERED: fentaNYL 50 mcg/mL 1 mL Vial ONE (15:03)
[2023-04-20] MEDS ORDERED: PHENYLEPHRINE-NS 100 MCG/ML 10 ML SYRINGE ONE (15:21)
[2023-04-20] MEDS: Famotidine 20 MG TAB PO SCH ×2 (21:30→21:31)
[2023-04-20] MEDS: Cephalexin 250 MG CAP PO SCH (21:30)
[2023-04-20] MEDS: Lisinopril 10 MG TAB PO SCH (21:31)
[2023-04-21] MEDS: Spironolactone 25 MG TAB PO SCH (09:44)
[2023-04-21] MEDS: Amiodarone 200 MG TAB PO SCH (09:44)
[2023-04-21] MEDS: Carvedilol 3.125 MG TAB PO SCH (09:45)
[2023-04-21] MEDS: Cephalexin 250 MG CAP PO SCH (09:45)
[2023-04-21 14:17] VITALS: BP 126/66; TEMP 97.9
[2023-04-22] MEDS ORDERED: Furosemide 20 MG TAB PO SCH (09:00)
== END 2023-04-21 12:15 | disposition home health service (06) | DRG 276 ==
LOC: ERS 19:39 → ERHOLD 21:08 → CCU 04-15 00:02 → 2NO 04-17 13:38
PROVIDERS: ADMIT Student in an Organized Health Care Education/Training Program; ATTEND Internal Medicine
PROC: 30233J1 Transfusion of Nonautologous Serum Albumin into Peripheral Vein, Percutaneous Approach (ICD-10-PCS; 2023-04-16)
PROC: 0JH608Z Insertion of Defibrillator Generator into Chest Subcutaneous Tissue and Fascia, Open Approach (ICD-10-PCS; principal; 2023-04-20)
PROC: 02H63KZ Insertion of Defibrillator Lead into Right Atrium, Percutaneous Approach (ICD-10-PCS; 2023-04-20)
PROC: 02HK3KZ Insertion of Defibrillator Lead into Right Ventricle, Percutaneous Approach (ICD-10-PCS; 2023-04-20)
DX: I13.0 Hypertensive heart and chronic kidney disease with heart failure and stage 1 through stage 4 chronic kidney disease, or unspecified chronic kidney disease (principal); I50.43 Acute on chronic combined systolic (congestive) and diastolic (congestive) heart failure; I48.20 Chronic atrial fibrillation, unspecified; I42.8 Other cardiomyopathies; M19.90 Unspecified osteoarthritis, unspecified site; J44.9 Chronic obstructive pulmonary disease, unspecified; N18.2 Chronic kidney disease, stage 2 (mild); I95.9 Hypotension, unspecified; I48.0 Paroxysmal atrial fibrillation; I08.1 Rheumatic disorders of both mitral and tricuspid valves; Z90.49 Acquired absence of other specified parts of digestive tract; Z98.890 Other specified postprocedural states; Z98.51 Tubal ligation status; Z88.8 Allergy status to other drugs, medicaments and biological substances; Z88.0 Allergy status to penicillin; Z88.2 Allergy status to sulfonamides; Z79.82 Long term (current) use of aspirin; Z79.899 Other long term (current) drug therapy; Z79.01 Long term (current) use of anticoagulants
CPT/HCPCS: 33249; 36415; 71045; 71250; 80048; 83605; 83735; 83880; 84145; 84484; 85025; 93005; 93306; 97139; C1721; C1777; C1898; J1580; J1940; J1956; J2001; J2250; J3010; J3475; J3490; P9047; Q0162

== ENCOUNTER 2024-02-18 13:59 | Inpatient (IN) | payer MEDICARE ==
[2024-02-18 14:59] LABS: #Basophils 0.04 10x3/uL (0.0-0.2); #Eosinophils Less than 0.03 10x3/uL (0.0-0.7); %Basophils 0.3 % (0.0-1.0); %Eosinophils 0.2 % (0.0-10.0); %Lymphocytes 6.2 % (21.0-51.0); %Monocytes 6.9 % (0.0-10.0); %Neutrophils 85.9 % (42.0-75.0); Hematocrit 43.4 % (36.0-47.0); Hemoglobin 13.6 g/dL (12.0-16.0); Mean Corpuscular HGB CONC 31.3 g/dL (32.0-36.0); Mean Corpuscular Hemoglobin 26.1 pg (27.0-31.0); Mean Corpuscular Volume 83.3 fL (78.0-98.0); Mean Platelet Volume 11.2 fL (7.4-10.4); Platelet Count 336 10x3/uL (130-400); RBC Distribution Width 15.3 % (11.5-14.5); Red Blood Cell (RBC) Count 5.21 mill/uL (4.20-5.40)
[2024-02-18] MEDS ORDERED: Ondansetron PF 4 MG/2 ML Vial ONE (15:06)
[2024-02-18 15:33] LABS: ALT (SGPT) 154 U/L (8-55); AST (SGOT) 123 U/L (5-34); Albumin 3.3 g/dL (3.4-4.8); Alkaline Phosphatase 134 U/L (40-110); Anion Gap 19 mmol/L (10-20); BUN (Urea Nitrogen) 36 mg/dL (9.8-20.1); Bilirubin, Total 2.1 mg/dL (0.2-1.2); Calc. Creatinine Clearance 0 mL/min (70-130); Calcium 8.9 mg/dL (7.8-10.44); Carbon Dioxide 19 mmol/L (23-31); Chloride 98 mmol/L (98-107); Estimated GFR 67; Globulin 3.7 g/dL (2.4-3.5); Glucose 113 mg/dL (83-110); Lipase 19 U/L (8-78); Potassium 4.4 mmol/L (3.5-5.1); Sodium 132 mmol/L (136-145)
[2024-02-18 15:37] LABS: Troponin I 0.064 ng/mL (< 0.028)
[2024-02-18] MEDS ORDERED: Cefepime 2 GM VIAL ONE (17:17)
[2024-02-18] MEDS ORDERED: Sodium Chloride 0.9% 100 ML ONE (17:17)
[2024-02-18] MEDS ORDERED: Amiodarone 200 MG TAB ONE (17:17)
[2024-02-18 17:29] LABS: Bacteria/HPF 2+ HPF (None Seen); Bilirubin 1+ (Negative); Blood, Urine Trace (Negative); CAUTI Indications for Culture Dysuria,urgency,freq; Clarity Turbid (Clear); Glucose, Urine (Dipstick) Normal (Negative); Ketone, Urine Trace mg/dL (Negative); Leukocyte Negative Leu/uL (Negative); Nitrite Negative (Negative); Protein, Urine (Dipstick) 100 mg/dL (Neg-Trace); RBC/HPF 0-3 HPF (0-3); Specific Gravity, Urine 1.025 (1.002-1.036); Squamous Epithelial None Seen HPF (0-3); WBC/HPF None Seen HPF (0-3); pH, Urine 5.5 (5.0-9.0)
[2024-02-18 17:31] LABS: Urine Culture Reflex No No
[2024-02-18 17:48] LABS: Lactic Acid 3.41 mmol/L (0.5-2.2)
[2024-02-18] MEDS ORDERED: Bisacodyl 5 MG TAB PO PRN (17:57)
[2024-02-18] MEDS ORDERED: Metoprolol Tartrate 5 MG (5 mL) VIAL ONE (18:42)
[2024-02-18 20:02] VITALS: BMI 21.1
[2024-02-18] MEDS: Apixaban 5 MG TAB PO SCH (20:22)
[2024-02-18] MEDS: cefTRIAXone\\ROCEPHIN 1 GM in Sodium Chloride 0.9% 100 ML IVPB SCH (20:23)
[2024-02-18] MEDS: Metoprolol Tartrate 5 MG (5 mL) VIAL IVP SCH (20:23)
[2024-02-18] MEDS: Acetaminophen 325 MG TAB PO PRN (20:29)
[2024-02-18] MEDS: Sodium Chloride 0.9% 500 ML IV SCH (20:32)
[2024-02-18] MEDS: Ondansetron PF 4 MG/2 ML Vial IVP PRN (20:37)
[2024-02-18 21:07] LABS: Troponin I 0.072 ng/mL (< 0.028)
[2024-02-19] MEDS: Metoprolol Tartrate 5 MG (5 mL) VIAL IVP SCH (00:31)
[2024-02-19 03:53] LABS: #Basophils Less than 0.03 10x3/uL (0.0-0.2); #Eosinophils Less than 0.03 10x3/uL (0.0-0.7); %Basophils 0.2 % (0.0-1.0); %Lymphocytes 6.4 % (21.0-51.0); %Monocytes 8.6 % (0.0-10.0); %Neutrophils 84.4 % (42.0-75.0); Hematocrit 38.3 % (36.0-47.0); Hemoglobin 11.9 g/dL (12.0-16.0); Mean Corpuscular HGB CONC 31.1 g/dL (32.0-36.0); Mean Corpuscular Hemoglobin 25.6 pg (27.0-31.0); Mean Corpuscular Volume 82.4 fL (78.0-98.0); Mean Platelet Volume 11.1 fL (7.4-10.4); Platelet Count 248 10x3/uL (130-400); RBC Distribution Width 15.3 % (11.5-14.5); Red Blood Cell (RBC) Count 4.65 mill/uL (4.20-5.40)
[2024-02-19 04:04] LABS: Lactic Acid 2.33 mmol/L (0.5-2.2)
[2024-02-19 04:10] LABS: ALT (SGPT) 207 U/L (8-55); AST (SGOT) 235 U/L (5-34); Albumin 2.6 g/dL (3.4-4.8); Alkaline Phosphatase 108 U/L (40-110); Anion Gap 18 mmol/L (10-20); BUN (Urea Nitrogen) 44 mg/dL (9.8-20.1); Bilirubin, Total 1.6 mg/dL (0.2-1.2); Calc. Creatinine Clearance 38 mL/min (70-130); Calcium 8.3 mg/dL (7.8-10.44); Carbon Dioxide 16 mmol/L (23-31); Chloride 102 mmol/L (98-107); Estimated GFR 56; Globulin 2.8 g/dL (2.4-3.5); Glucose 91 mg/dL (83-110); Magnesium 2.1 mg/dL (1.6-2.6); Potassium 4.5 mmol/L (3.5-5.1); Protein, Total 5.4 g/dL (5.8-8.1); Sodium 131 mmol/L (136-145)
[2024-02-19 04:31] LABS: Free T4 (Free Thyroxine) 1.12 ng/dL (0.70-1.48); Thyroid Stimulating Hormone 1.6185 uIU/mL (0.35-4.94)
[2024-02-19] MEDS: Carvedilol 6.25 MG TAB PO SCH (08:52)
[2024-02-19] MEDS: Lisinopril 10 MG TAB PO SCH (08:52)
[2024-02-19] MEDS: Amiodarone 200 MG TAB PO SCH (08:52)
[2024-02-19] MEDS: Furosemide 20 MG TAB PO SCH (08:52)
[2024-02-19] MEDS: Lidocaine 4% Patch TD SCH (08:53)
[2024-02-19] MEDS: Transdermal Patch Removal TOP SCH (20:04)
[2024-02-20 04:07] LABS: #Basophils 0.05 10x3/uL (0.0-0.2); %Basophils 0.4 % (0.0-1.0); %Monocytes 8.4 % (0.0-10.0); %Neutrophils 77.9 % (42.0-75.0); Hematocrit 39.4 % (36.0-47.0); Hemoglobin 12.3 g/dL (12.0-16.0); Mean Corpuscular HGB CONC 31.2 g/dL (32.0-36.0); Mean Corpuscular Hemoglobin 25.4 pg (27.0-31.0); Mean Corpuscular Volume 81.4 fL (78.0-98.0); Mean Platelet Volume 11.1 fL (7.4-10.4); Platelet Count 295 10x3/uL (130-400); RBC Distribution Width 15.1 % (11.5-14.5); Red Blood Cell (RBC) Count 4.84 mill/uL (4.20-5.40)
[2024-02-20 04:28] LABS: Troponin I 0.074 ng/mL (< 0.028)
[2024-02-20 04:30] LABS: ALT (SGPT) 184 U/L (8-55); AST (SGOT) 154 U/L (5-34); Albumin 2.4 g/dL (3.4-4.8); Alkaline Phosphatase 105 U/L (40-110); Anion Gap 14 mmol/L (10-20); BUN (Urea Nitrogen) 55 mg/dL (9.8-20.1); Bilirubin, Total 0.6 mg/dL (0.2-1.2); Calc. Creatinine Clearance 32 mL/min (70-130); Calcium 7.7 mg/dL (7.8-10.44); Carbon Dioxide 21 mmol/L (23-31); Chloride 102 mmol/L (98-107); Estimated GFR 45; Globulin 2.6 g/dL (2.4-3.5); Glucose 85 mg/dL (83-110); Magnesium 2.2 mg/dL (1.6-2.6); Potassium 4.1 mmol/L (3.5-5.1); Sodium 133 mmol/L (136-145)
[2024-02-20] MEDS: Spironolactone 25 MG TAB PO SCH (11:57)
[2024-02-20] MEDS ORDERED: Furosemide 40 MG (4 mL) VIAL SLOW IVP SCH (12:30)
[2024-02-20] MEDS: Furosemide 20 MG (2 mL) VIAL SLOW IVP SCH (14:54)
[2024-02-21 00:15] LABS: #Basophils 0.05 10x3/uL (0.0-0.2); %Basophils 0.4 % (0.0-1.0); %Eosinophils 2.6 % (0.0-10.0); %Lymphocytes 7.6 % (21.0-51.0); %Monocytes 9.4 % (0.0-10.0); %Neutrophils 79.6 % (42.0-75.0); Hematocrit 40.2 % (36.0-47.0); Hemoglobin 12.4 g/dL (12.0-16.0); Mean Corpuscular HGB CONC 30.8 g/dL (32.0-36.0); Mean Corpuscular Hemoglobin 25.4 pg (27.0-31.0); Mean Corpuscular Volume 82.4 fL (78.0-98.0); Mean Platelet Volume 10.5 fL (7.4-10.4); Platelet Count 314 10x3/uL (130-400); RBC Distribution Width 15.2 % (11.5-14.5); Red Blood Cell (RBC) Count 4.88 mill/uL (4.20-5.40)
[2024-02-21 00:37] LABS: Anion Gap 15 mmol/L (10-20); BUN (Urea Nitrogen) 53 mg/dL (9.8-20.1); Calc. Creatinine Clearance 42 mL/min (70-130); Carbon Dioxide 23 mmol/L (23-31); Chloride 100 mmol/L (98-107); Estimated GFR 63; Glucose 125 mg/dL (83-110); Potassium 3.7 mmol/L (3.5-5.1); Sodium 134 mmol/L (136-145)
[2024-02-21 00:40] LABS: Troponin I 0.113 ng/mL (< 0.028)
[2024-02-21 13:33] VITALS: BP 121/74; TEMP 97.4
[2024-02-21] MEDS ORDERED: Furosemide 20 MG (2 mL) VIAL SLOW IVP SCH (14:00)
[2024-02-21] MEDS ORDERED: Furosemide 40 MG (4 mL) VIAL SLOW IVP SCH (14:00)
== END 2024-02-21 13:51 | disposition home or self-care (01) | DRG 391 ==
LOC: ERS 13:59 → 2NO 17:57
PROVIDERS: ADMIT Internal Medicine; ATTEND Internal Medicine
DX: A08.39 Other viral enteritis (principal); I50.43 Acute on chronic combined systolic (congestive) and diastolic (congestive) heart failure; E87.20 Acidosis, unspecified; I48.19 Other persistent atrial fibrillation; I13.0 Hypertensive heart and chronic kidney disease with heart failure and stage 1 through stage 4 chronic kidney disease, or unspecified chronic kidney disease; I42.8 Other cardiomyopathies; R64 Cachexia; I47.19 Other supraventricular tachycardia; R11.2 Nausea with vomiting, unspecified; R26.9 Unspecified abnormalities of gait and mobility; N18.2 Chronic kidney disease, stage 2 (mild); J44.9 Chronic obstructive pulmonary disease, unspecified; M19.90 Unspecified osteoarthritis, unspecified site; E78.5 Hyperlipidemia, unspecified; I25.10 Atherosclerotic heart disease of native coronary artery without angina pectoris; Z88.8 Allergy status to other drugs, medicaments and biological substances; Z88.0 Allergy status to penicillin; Z88.2 Allergy status to sulfonamides; Z95.810 Presence of automatic (implantable) cardiac defibrillator; Z79.01 Long term (current) use of anticoagulants; Z79.899 Other long term (current) drug therapy; Z90.49 Acquired absence of other specified parts of digestive tract; Z98.51 Tubal ligation status; Z79.82 Long term (current) use of aspirin; Z91.148 Patient's other noncompliance with medication regimen for other reason; Z68.20 Body mass index [BMI] 20.0-20.9, adult
CPT/HCPCS: 36415; 36416; 71045; 76705; 80053; 81001; 83605; 83690; 83735; 83880; 84145; 84439; 84443; 84484; 85025; 87040; 87081; 87086; 87428; 87430; 93005; 93010; 93306; 96374; 96375; J0692; J0696; J0780; J1940; J2405; J7030

== ENCOUNTER 2024-02-29 21:04 | Emergency (ER) | payer MEDICARE ==
[2024-02-29 22:17] LABS: #Basophils 0.06 10x3/uL (0.0-0.2); %Basophils 0.6 % (0.0-1.0); %Eosinophils 0.7 % (0.0-10.0); %Lymphocytes 9.4 % (21.0-51.0); %Monocytes 6.1 % (0.0-10.0); %Neutrophils 82.8 % (42.0-75.0); Hematocrit 41.7 % (36.0-47.0); Hemoglobin 12.7 g/dL (12.0-16.0); Mean Corpuscular HGB CONC 30.5 g/dL (32.0-36.0); Mean Corpuscular Hemoglobin 24.8 pg (27.0-31.0); Mean Corpuscular Volume 81.4 fL (78.0-98.0); Mean Platelet Volume 10.7 fL (7.4-10.4); Platelet Count 370 10x3/uL (130-400); RBC Distribution Width 15.9 % (11.5-14.5); Red Blood Cell (RBC) Count 5.12 mill/uL (4.20-5.40)
[2024-02-29 22:30] LABS: ALT (SGPT) 48 U/L (8-55); AST (SGOT) 22 U/L (5-34); Albumin 3.2 g/dL (3.4-4.8); Alkaline Phosphatase 121 U/L (40-110); Anion Gap 17 mmol/L (10-20); BUN (Urea Nitrogen) 35 mg/dL (9.8-20.1); Bilirubin, Total 0.8 mg/dL (0.2-1.2); Calc. Creatinine Clearance 0 mL/min (70-130); Calcium 9.4 mg/dL (7.8-10.44); Carbon Dioxide 22 mmol/L (23-31); Chloride 101 mmol/L (98-107); Estimated GFR 52; Globulin 3.8 g/dL (2.4-3.5); Glucose 119 mg/dL (83-110); Potassium 4.3 mmol/L (3.5-5.1); Sodium 136 mmol/L (136-145)
[2024-02-29 22:37] LABS: Troponin I 0.134 ng/mL (< 0.028)
[2024-02-29] MEDS ORDERED: Ondansetron PF 4 MG/2 ML Vial ONE (22:39)
== END 2024-03-01 00:15 | disposition home or self-care (01) ==
LOC: ERS 21:04
DX: I13.10 Hypertensive heart and chronic kidney disease without heart failure, with stage 1 through stage 4 chronic kidney disease, or unspecified chronic kidney disease (principal); I50.9 Heart failure, unspecified; N18.2 Chronic kidney disease, stage 2 (mild); R11.0 Nausea; I48.91 Unspecified atrial fibrillation; J44.9 Chronic obstructive pulmonary disease, unspecified; Z79.01 Long term (current) use of anticoagulants
CPT/HCPCS: 71045; 80053; 83605; 83880; 84145; 84484; 85025; 87040; 87428; 93005; J2405; 36415; 96374

== ENCOUNTER 2024-04-23 20:49 | Inpatient (IN) | payer MEDICARE ==
[~2024-04-23 20:49] MED LIST: Iopamidol-370 76% 500 ML MDV (1 ML CHARGE) ONE
[2024-04-23] MEDS ORDERED: Ondansetron PF 4 MG/2 ML Vial ONE (22:25)
[2024-04-23 22:32] LABS: #Basophils 0.05 10x3/uL (0.0-0.2); %Basophils 0.7 % (0.0-1.0); %Eosinophils 0.5 % (0.0-10.0); %Lymphocytes 12.9 % (21.0-51.0); %Monocytes 10.4 % (0.0-10.0); %Neutrophils 75.2 % (42.0-75.0); Hematocrit 42.5 % (36.0-47.0); Hemoglobin 13.1 g/dL (12.0-16.0); Mean Corpuscular HGB CONC 30.8 g/dL (32.0-36.0); Mean Corpuscular Hemoglobin 21.9 pg (27.0-31.0); Mean Platelet Volume 10.3 fL (7.4-10.4); Platelet Count 238 10x3/uL (130-400); Red Blood Cell (RBC) Count 5.99 mill/uL (4.20-5.40)
[2024-04-23 22:48] LABS: Bacteria/HPF 2+ HPF (None Seen); Bilirubin Negative (Negative); Blood, Urine Trace (Negative); CAUTI Indications for Culture Fever or rigors; Clarity Clear (Clear); Glucose, Urine (Dipstick) Normal (Negative); Ketone, Urine Trace mg/dL (Negative); Leukocyte 75 Leu/uL (Negative); Nitrite Negative (Negative); Protein, Urine (Dipstick) 70 mg/dL (Neg-Trace); RBC/HPF 0-3 HPF (0-3); Specific Gravity, Urine 1.023 (1.002-1.036); Squamous Epithelial None Seen HPF (0-3); Urobilinogen 6 mg/dL (Less than 2); WBC/HPF 21-50 HPF (0-3); pH, Urine 5.5 (5.0-9.0)
[2024-04-23 22:49] LABS: Urine Culture Reflex Yes Yes
[2024-04-23 22:51] LABS: Burr Cells SLIGHT = 2-5 cells HPF (0-1); Elliptocytes SLIGHT = 2-5 cells HPF (0-1); Microcytosis SLIGHT = 6-15 cells HPF (0-5); Platelet Adequacy Comment Platelets Normal; Poikilocytosis SLIGHT = 6-15 cells HPF (0-5); Polychromasia SLIGHT = 2-3 cells HPF (0-2)
[2024-04-23 22:51] LABS: Amphetamine Not Detected (NotDetected); Barbiturates Screen Not Detected (NotDetected); Benzodiazepine Screen Not Detected (NotDetected); Cocaine Metabolite Screen Not Detected (NotDetected); Methadone Not Detected (NotDetected); Methamphetamine Detected (NotDetected); Opiate Screen Not Detected (NotDetected); Oxycodone Screen Not Detected (NotDetected); Phencyclidine (PCP) Not Detected (NotDetected); THC/Cannabinoid Screen Not Detected (NotDetected); Tricyclic Screen Not Detected (NotDetected)
[2024-04-23 22:57] LABS: Acetaminophen Less than 10 mcg/mL (Less than 10); Alcohol Less than 10.0 mg/dL (Less than 10); Salicylate Less than 8.0 mg/dL (Less than 8.0)
[2024-04-23 22:58] LABS: ALT (SGPT) 46 U/L (Less than 34); AST (SGOT) 80 U/L (11-34); Albumin 3.3 g/dL (3.1-4.5); Alkaline Phosphatase 98 U/L (40-110); Anion Gap 19 mmol/L (10-20); BUN (Urea Nitrogen) 30 mg/dL (9.8-20.1); Bilirubin, Total 2.1 mg/dL (0.3-1.2); Calc. Creatinine Clearance 0 mL/min (70-130); Calcium 9.3 mg/dL (7.8-10.44); Carbon Dioxide 22 mmol/L (23-31); Chloride 101 mmol/L (98-107); Estimated GFR 53; Globulin 3.5 g/dL (2.4-3.5); Glucose 97 mg/dL (83-110); Potassium 4.8 mmol/L (3.5-5.1); Protein, Total 6.8 g/dL (5.8-8.1); Sodium 137 mmol/L (136-145)
[2024-04-23 23:02] LABS: Troponin I 0.029 ng/mL (< 0.028)
[2024-04-23] MEDS ORDERED: Cefepime 2 GM VIAL ONE (23:43)
[2024-04-23] MEDS ORDERED: Sodium Chloride 0.9% 100 ML ONE (23:43)
[2024-04-24 02:11] LABS: Lactic Acid 3.02 mmol/L (0.50-2.20)
[2024-04-24] MEDS ORDERED: metroNIDAZOLE 500 MG (100 mL) BAG ONE (02:17)
[2024-04-24] MEDS ORDERED: Acetaminophen 650 MG Suppository PR PRN (03:36)
[2024-04-24] MEDS ORDERED: Calcium Carbonate 500 MG ChewTAB PO PRN (03:36)
[2024-04-24] MEDS ORDERED: Acetaminophen 325 MG TAB PO PRN (03:36)
[2024-04-24] MEDS ORDERED: Ondansetron ODT 4 MG TAB PO PRN (03:36)
[2024-04-24] MEDS ORDERED: Furosemide 40 MG (4 mL) VIAL ONE (05:49)
[2024-04-24] MEDS ORDERED: Ondansetron PF 4 MG/2 ML Vial ONE (05:49)
[2024-04-24] MEDS: Ondansetron PF 4 MG/2 ML Vial IVP PRN (05:55)
[2024-04-24] MEDS: Furosemide 40 MG (4 mL) VIAL SLOW IVP SCH ×2 (05:56→21:25)
[2024-04-24] MEDS ORDERED: Carvedilol 6.25 MG TAB ONE (08:38)
[2024-04-24] MEDS ORDERED: Famotidine 20 MG TAB ONE (08:38)
[2024-04-24] MEDS ORDERED: Amiodarone 200 MG TAB ONE (08:38)
[2024-04-24] MEDS ORDERED: Aspirin 81 mg Enteric Coated Tablet ONE (08:38)
[2024-04-24] MEDS ORDERED: Apixaban 5 MG TAB PO SCH (09:00)
[2024-04-24] MEDS: Spironolactone 25 MG TAB PO SCH (09:30)
[2024-04-24] MEDS: Famotidine 20 MG TAB PO SCH (09:30)
[2024-04-24] MEDS: Aspirin 81 mg Enteric Coated Tablet PO SCH (09:30)
[2024-04-24] MEDS: Amiodarone 200 MG TAB PO SCH (09:30)
[2024-04-24] MEDS: Carvedilol 6.25 MG TAB PO SCH (09:30)
[2024-04-24 09:34] LABS: Troponin I 0.042 ng/mL (< 0.028)
[2024-04-24] MEDS ORDERED: Pantoprazole 40 MG DR.TAB ONE (16:32)
[2024-04-24] MEDS: Famotidine/PF 20 mg/2ml Vial SLOW IVP SCH (16:33)
[2024-04-24 18:25] VITALS: BMI 19.0
[2024-04-24] MEDS: Polyethylene Glycol 3350 17 GM Packet PO SCH ×2 (20:45→21:24)
[2024-04-24] MEDS: Pantoprazole 40 MG VIAL IVP SCH ×2 (20:45→21:25)
[2024-04-24] MEDS: Lisinopril 10 MG TAB PO SCH (21:24)
[2024-04-25 04:53] LABS: ALT (SGPT) 75 U/L (Less than 34); AST (SGOT) 106 U/L (11-34); Albumin 2.7 g/dL (3.1-4.5); Alkaline Phosphatase 78 U/L (40-110); Anion Gap 15 mmol/L (10-20); BUN (Urea Nitrogen) 29 mg/dL (9.8-20.1); Bilirubin, Total 1.5 mg/dL (0.3-1.2); Calc. Creatinine Clearance 33 mL/min (70-130); Calcium 8.2 mg/dL (7.8-10.44); Carbon Dioxide 29 mmol/L (23-31); Chloride 96 mmol/L (98-107); Estimated GFR 57; Globulin 3.1 g/dL (2.4-3.5); Glucose 64 mg/dL (83-110); Protein, Total 5.8 g/dL (5.8-8.1); Sodium 137 mmol/L (136-145)
[2024-04-25 05:10] LABS: #Basophils 0.06 10x3/uL (0.0-0.2); %Basophils 1.2 % (0.0-1.0); %Eosinophils 4.3 % (0.0-10.0); %Lymphocytes 17.7 % (21.0-51.0); %Monocytes 9.8 % (0.0-10.0); %Neutrophils 66.8 % (42.0-75.0); Hemoglobin 12.4 g/dL (12.0-16.0); Mean Corpuscular Hemoglobin 21.9 pg (27.0-31.0); Mean Corpuscular Volume 70.8 fL (78.0-98.0); Mean Platelet Volume 10.2 fL (7.4-10.4); Platelet Count 235 10x3/uL (130-400); RBC Distribution Width 19.8 % (11.5-14.5); Red Blood Cell (RBC) Count 5.65 mill/uL (4.20-5.40)
[2024-04-25] MEDS ORDERED: Furosemide 40 MG (4 mL) VIAL SLOW IVP SCH ×2 (06:00→09:00)
[2024-04-25] MEDS: Potassium Chloride 20 MEQ TAB PO SCH ×3 (06:02→09:37)
[2024-04-25] MEDS: Potassium Chloride 20 MEQ in Premix 1 BAG IVPB SCH (06:03)
[2024-04-25 07:49] LABS: Magnesium 1.6 mg/dL (1.6-2.6)
[2024-04-25] MEDS ORDERED: Electrolyte Replacement Protocol 1 EACH FS SCH (08:15)
[2024-04-25] MEDS ORDERED: Electrolyte Replacement Protocol FS PRN (08:30)
[2024-04-25] MEDS: Pantoprazole 40 MG VIAL IVP SCH (09:36)
[2024-04-25] MEDS: Magnesium 2 GM/50 ML(in water) 2 GM in Premix 1 BAG IVPB SCH (09:36)
[2024-04-25] MEDS: Polyethylene Glycol 3350 17 GM Packet PO SCH (09:37)
[2024-04-25] MEDS: Sodium Chloride 0.9% 500 ML IV SCH ×2 (11:49→12:29)
[2024-04-25] MEDS: Albumin 25% 25 GM (100 mL) BOT IVPB SCH (11:50)
[2024-04-25] MEDS: Hydrocortisone Sod Succ/PF 100 mg/2 ml Vial IVP SCH (12:36)
[2024-04-25] MEDS: NS 0.9% w/ 20 MEQ KCL 1,000 ML/1,000 ML BAG IV SCH (14:41)
[2024-04-25 15:04] LABS: Anion Gap 11 mmol/L (10-20); BUN (Urea Nitrogen) 25 mg/dL (9.8-20.1); Calc. Creatinine Clearance 33 mL/min (70-130); Calcium 8.1 mg/dL (7.8-10.44); Carbon Dioxide 28 mmol/L (23-31); Chloride 100 mmol/L (98-107); Estimated GFR 56; Glucose 94 mg/dL (83-110); Sodium 134 mmol/L (136-145)
[2024-04-25] MEDS: Cefepime 1 GM in Sodium Chloride 0.9% 100 ML IVPB SCH (20:33)
[2024-04-26 05:07] LABS: #Basophils Less than 0.03 10x3/uL (0.0-0.2); #Eosinophils Less than 0.03 10x3/uL (0.0-0.7); %Basophils 0.4 % (0.0-1.0); %Lymphocytes 7.7 % (21.0-51.0); %Monocytes 4.8 % (0.0-10.0); %Neutrophils 86.7 % (42.0-75.0); Hematocrit 37.2 % (36.0-47.0); Hemoglobin 11.2 g/dL (12.0-16.0); Mean Corpuscular HGB CONC 30.1 g/dL (32.0-36.0); Mean Corpuscular Volume 73.1 fL (78.0-98.0); Mean Platelet Volume 10.1 fL (7.4-10.4); Platelet Count 220 10x3/uL (130-400); RBC Distribution Width 19.7 % (11.5-14.5); Red Blood Cell (RBC) Count 5.09 mill/uL (4.20-5.40)
[2024-04-26 05:49] LABS: ALT (SGPT) 69 U/L (Less than 34); AST (SGOT) 79 U/L (11-34); Albumin 4.1 g/dL (3.1-4.5); Alkaline Phosphatase 64 U/L (40-110); Anion Gap 15 mmol/L (10-20); BUN (Urea Nitrogen) 26 mg/dL (9.8-20.1); Bilirubin, Total 1.4 mg/dL (0.3-1.2); Calc. Creatinine Clearance 33 mL/min (70-130); Calcium 8.4 mg/dL (7.8-10.44); Carbon Dioxide 20 mmol/L (23-31); Chloride 103 mmol/L (98-107); Estimated GFR 52; Globulin 2.6 g/dL (2.4-3.5); Glucose 167 mg/dL (83-110); Magnesium 2.1 mg/dL (1.6-2.6); Potassium 5.7 mmol/L (3.5-5.1); Protein, Total 6.7 g/dL (5.8-8.1); Sodium 132 mmol/L (136-145)
[2024-04-26] MEDS: Carvedilol 3.125 MG TAB PO SCH (15:58)
[2024-04-26] MEDS: VANCOMYCIN 1.25 GM/250 ML BAG 1.25 GM in Premix 1 BAG IVPB SCH (15:58)
[2024-04-26 17:09] LABS: Anion Gap 14 mmol/L (10-20); BUN (Urea Nitrogen) 29 mg/dL (9.8-20.1); Calc. Creatinine Clearance 33 mL/min (70-130); Calcium 8.8 mg/dL (7.8-10.44); Carbon Dioxide 19 mmol/L (23-31); Chloride 103 mmol/L (98-107); Estimated GFR 52; Glucose 200 mg/dL (83-110); Potassium 5.2 mmol/L (3.5-5.1); Sodium 131 mmol/L (136-145)
[2024-04-26] MEDS ORDERED: Vancomycin 1 GM in Premix 1 BAG IVPB SCH (21:00)
[2024-04-26] MEDS: Hydrocortisone Sod Succ/PF 100 mg/2 ml Vial IVP SCH (21:53)
[2024-04-27 05:35] LABS: Chloride 105 mmol/L (98-107); Potassium 5.2 mmol/L (3.5-5.1); Sodium 133 mmol/L (136-145)
[2024-04-27 05:36] LABS: Albumin 3.8 g/dL (3.1-4.5)
[2024-04-27 05:37] LABS: Globulin 2.2 g/dL (2.4-3.5); Glucose 136 mg/dL (83-110)
[2024-04-27 05:38] LABS: Anion Gap 14 mmol/L (10-20); Carbon Dioxide 19 mmol/L (23-31)
[2024-04-27 05:40] LABS: Alkaline Phosphatase 62 U/L (40-110)
[2024-04-27 05:41] LABS: BUN (Urea Nitrogen) 34 mg/dL (9.8-20.1); Calc. Creatinine Clearance 36 mL/min (70-130); Estimated GFR 56
[2024-04-27 05:42] LABS: Magnesium 2.2 mg/dL (1.6-2.6)
[2024-04-27 05:43] LABS: #Basophils Less than 0.03 10x3/uL (0.0-0.2); #Eosinophils Less than 0.03 10x3/uL (0.0-0.7); %Basophils 0.1 % (0.0-1.0); %Lymphocytes 6.8 % (21.0-51.0); %Monocytes 5.5 % (0.0-10.0); %Neutrophils 87.2 % (42.0-75.0); ALT (SGPT) 59 U/L (Less than 34); AST (SGOT) 49 U/L (11-34); Hematocrit 38.2 % (36.0-47.0); Hemoglobin 11.2 g/dL (12.0-16.0); Mean Corpuscular HGB CONC 29.3 g/dL (32.0-36.0); Mean Corpuscular Hemoglobin 21.9 pg (27.0-31.0); Mean Corpuscular Volume 74.6 fL (78.0-98.0); Mean Platelet Volume 10.1 fL (7.4-10.4); Platelet Count 222 10x3/uL (130-400); RBC Distribution Width 19.8 % (11.5-14.5); Red Blood Cell (RBC) Count 5.12 mill/uL (4.20-5.40)
[2024-04-27 05:59] LABS: Vancomycin, Random 15.6 ug/mL (See Comment)
[2024-04-27] MEDS: Amiodarone 200 MG TAB PO SCH (09:57)
[2024-04-27] MEDS: Vancomycin HCl 750 MG in Sodium Chloride 0.9% 250 ML 250 ML IVPB SCH (13:09)
[2024-04-28 04:32] LABS: #Basophils Less than 0.03 10x3/uL (0.0-0.2); #Eosinophils Less than 0.03 10x3/uL (0.0-0.7); %Lymphocytes 6.4 % (21.0-51.0); %Monocytes 7.4 % (0.0-10.0); %Neutrophils 85.8 % (42.0-75.0); Hematocrit 39.2 % (36.0-47.0); Hemoglobin 11.7 g/dL (12.0-16.0); Mean Corpuscular HGB CONC 29.8 g/dL (32.0-36.0); Mean Corpuscular Hemoglobin 21.6 pg (27.0-31.0); Mean Corpuscular Volume 72.5 fL (78.0-98.0); Mean Platelet Volume 10.6 fL (7.4-10.4); Platelet Count 258 10x3/uL (130-400); RBC Distribution Width 19.9 % (11.5-14.5); Red Blood Cell (RBC) Count 5.41 mill/uL (4.20-5.40)
[2024-04-28 05:03] LABS: Elliptocytes SLIGHT = 2-5 cells HPF (0-1); Hypochromia SLIGHT = 6-15 cells HPF (0-5); Microcytosis SLIGHT = 6-15 cells HPF (0-5); Platelet Adequacy Comment Platelets Normal; Polychromasia SLIGHT = 2-3 cells HPF (0-2)
[2024-04-28 05:48] LABS: ALT (SGPT) 50 U/L (Less than 34); AST (SGOT) 38 U/L (11-34); Albumin 3.8 g/dL (3.1-4.5); Alkaline Phosphatase 76 U/L (40-110); Anion Gap 15 mmol/L (10-20); BUN (Urea Nitrogen) 34 mg/dL (9.8-20.1); Bilirubin, Total 0.9 mg/dL (0.3-1.2); Calc. Creatinine Clearance 35 mL/min (70-130); Calcium 9.2 mg/dL (7.8-10.44); Carbon Dioxide 18 mmol/L (23-31); Chloride 105 mmol/L (98-107); Estimated GFR 53; Globulin 2.8 g/dL (2.4-3.5); Glucose 138 mg/dL (83-110); Potassium 5.1 mmol/L (3.5-5.1); Protein, Total 6.6 g/dL (5.8-8.1); Sodium 133 mmol/L (136-145)
[2024-04-28] MEDS: Pantoprazole 40 MG DR.TAB PO SCH (09:26)
[2024-04-28] MEDS: Carvedilol 3.125 MG TAB PO SCH ×2 (11:48→17:59)
[2024-04-29 05:08] LABS: Hematocrit 38.5 % (36.0-47.0); Hemoglobin 11.7 g/dL (12.0-16.0); Mean Corpuscular HGB CONC 30.4 g/dL (32.0-36.0); Mean Corpuscular Hemoglobin 22.1 pg (27.0-31.0); Mean Corpuscular Volume 72.6 fL (78.0-98.0); Platelet Count 185 10x3/uL (130-400); RBC Distribution Width 19.9 % (11.5-14.5)
[2024-04-29 05:23] LABS: ALT (SGPT) 46 U/L (Less than 34); AST (SGOT) 41 U/L (11-34); Albumin 3.5 g/dL (3.1-4.5); Alkaline Phosphatase 81 U/L (40-110); Anion Gap 16 mmol/L (10-20); BUN (Urea Nitrogen) 46 mg/dL (9.8-20.1); Bilirubin, Total 1.3 mg/dL (0.3-1.2); Calc. Creatinine Clearance 42 mL/min (70-130); Calcium 8.8 mg/dL (7.8-10.44); Carbon Dioxide 17 mmol/L (23-31); Chloride 105 mmol/L (98-107); Estimated GFR 65; Globulin 2.7 g/dL (2.4-3.5); Glucose 79 mg/dL (83-110); Potassium 5.1 mmol/L (3.5-5.1); Protein, Total 6.2 g/dL (5.8-8.1); Sodium 133 mmol/L (136-145)
[2024-04-29 05:25] LABS: Vancomycin, Random 17.8 ug/mL (See Comment)
[2024-04-29 06:20] LABS: Band 1 % (5-11); Elliptocytes SLIGHT = 2-5 cells HPF (0-1); Eosinophils 3 % (0-10); Hypochromia SLIGHT = 6-15 cells HPF (0-5); Lymphocytes 3 % (21-51); Microcytosis SLIGHT = 6-15 cells HPF (0-5); Monocytes 1 % (0-10); Neutrophil 91 % (42-75); Nucleated RBC (Manual Ct) 1 % (0); Platelet Adequacy Comment Platelets Normal; Poikilocytosis SLIGHT = 6-15 cells HPF (0-5); Polychromasia SLIGHT = 2-3 cells HPF (0-2)
[2024-04-29] MEDS ORDERED: Ipratropium/Albuterol 3 ML NEB NEB PRN (10:44)
[2024-04-29] MEDS: Furosemide 20 MG (2 mL) VIAL SLOW IVP SCH (11:06)
[2024-04-29] MEDS: Ipratropium/Albuterol 3 ML NEB NEB SCH ×2 (11:35→14:13)
[2024-04-29] MEDS ORDERED: Ipratropium/Albuterol 3 ML NEB ONE (13:10)
[2024-04-29] MEDS: Furosemide 20 MG (2 mL) VIAL ONE (14:24)
[2024-04-30 05:58] LABS: #Basophils Less than 0.03 10x3/uL (0.0-0.2); %Basophils 0.2 % (0.0-1.0); %Eosinophils 1.9 % (0.0-10.0); %Lymphocytes 8.2 % (21.0-51.0); %Monocytes 10.6 % (0.0-10.0); %Neutrophils 78.8 % (42.0-75.0); Hematocrit 38.6 % (36.0-47.0); Hemoglobin 11.8 g/dL (12.0-16.0); Mean Corpuscular HGB CONC 30.6 g/dL (32.0-36.0); Mean Corpuscular Hemoglobin 21.8 pg (27.0-31.0); Mean Corpuscular Volume 71.2 fL (78.0-98.0); Mean Platelet Volume 10.5 fL (7.4-10.4); Platelet Count 222 10x3/uL (130-400); RBC Distribution Width 20.1 % (11.5-14.5); Red Blood Cell (RBC) Count 5.42 mill/uL (4.20-5.40)
[2024-04-30 06:23] LABS: ALT (SGPT) 49 U/L (Less than 34); AST (SGOT) 49 U/L (11-34); Albumin 3.3 g/dL (3.1-4.5); Alkaline Phosphatase 83 U/L (40-110); Anion Gap 14 mmol/L (10-20); BUN (Urea Nitrogen) 36 mg/dL (9.8-20.1); Calc. Creatinine Clearance 41 mL/min (70-130); Calcium 8.7 mg/dL (7.8-10.44); Carbon Dioxide 23 mmol/L (23-31); Chloride 100 mmol/L (98-107); Estimated GFR 65; Globulin 2.7 g/dL (2.4-3.5); Glucose 122 mg/dL (83-110); Potassium 4.2 mmol/L (3.5-5.1); Sodium 133 mmol/L (136-145)
[2024-04-30 07:58] LABS: Magnesium 2.1 mg/dL (1.6-2.6)
[2024-04-30] MEDS: Furosemide 40 MG TAB PO SCH (17:22)
[2024-05-01 04:08] LABS: #Basophils Less than 0.03 10x3/uL (0.0-0.2); %Basophils 0.3 % (0.0-1.0); %Eosinophils 2.1 % (0.0-10.0); %Lymphocytes 10.4 % (21.0-51.0); %Monocytes 10.7 % (0.0-10.0); %Neutrophils 76.2 % (42.0-75.0); Hematocrit 36.7 % (36.0-47.0); Hemoglobin 11.1 g/dL (12.0-16.0); Mean Corpuscular HGB CONC 30.2 g/dL (32.0-36.0); Mean Corpuscular Hemoglobin 21.5 pg (27.0-31.0); Mean Corpuscular Volume 71.1 fL (78.0-98.0); Mean Platelet Volume 10.6 fL (7.4-10.4); Platelet Count 227 10x3/uL (130-400); Red Blood Cell (RBC) Count 5.16 mill/uL (4.20-5.40)
[2024-05-01 04:23] LABS: Anion Gap 13 mmol/L (10-20); BUN (Urea Nitrogen) 33 mg/dL (9.8-20.1); Calc. Creatinine Clearance 44 mL/min (70-130); Calcium 8.4 mg/dL (7.8-10.44); Carbon Dioxide 28 mmol/L (23-31); Chloride 98 mmol/L (98-107); Estimated GFR 73; Glucose 98 mg/dL (83-110); Magnesium 1.7 mg/dL (1.6-2.6); Potassium 3.1 mmol/L (3.5-5.1); Sodium 136 mmol/L (136-145)
[2024-05-01 08:40] LABS: ALT (SGPT) 37 U/L (Less than 34); AST (SGOT) 32 U/L (11-34); Albumin 3.2 g/dL (3.1-4.5); Alkaline Phosphatase 88 U/L (40-110); Bilirubin, Direct 0.5 mg/dL (0.1-0.3); Bilirubin, Total 0.9 mg/dL (0.3-1.2); Protein, Total 5.7 g/dL (5.8-8.1)
[2024-05-01] MEDS: Potassium Chloride 20 MEQ TAB PO SCH (08:42)
[2024-05-01] MEDS: Magnesium 2 GM/50 ML(in water) 2 GM in Premix 1 BAG IVPB SCH (08:42)
[2024-05-01 13:30] VITALS: BMI 19.4
[2024-05-01 15:56] VITALS: BP 139/65; TEMP 97.3
== END 2024-05-01 17:25 | disposition home or self-care (01) | DRG 871 ==
LOC: ERS 20:49 → 2NO 23:50 → ERHOLD 04-24 03:40 → 2NO 04-24 17:38
PROVIDERS: ADMIT Student in an Organized Health Care Education/Training Program; ATTEND Family Medicine
PROC: 3E03329 Introduction of Other Anti-infective into Peripheral Vein, Percutaneous Approach (ICD-10-PCS; principal; 2024-04-24)
PROC: 3E03329 Introduction of Other Anti-infective into Peripheral Vein, Percutaneous Approach (ICD-10-PCS; 2024-04-24)
PROC: 30233J1 Transfusion of Nonautologous Serum Albumin into Peripheral Vein, Percutaneous Approach (ICD-10-PCS; 2024-04-25)
DX: A41.9 Sepsis, unspecified organism (principal); I50.23 Acute on chronic systolic (congestive) heart failure; R65.21 Severe sepsis with septic shock; I42.9 Cardiomyopathy, unspecified; N39.0 Urinary tract infection, site not specified; I13.0 Hypertensive heart and chronic kidney disease with heart failure and stage 1 through stage 4 chronic kidney disease, or unspecified chronic kidney disease; I48.19 Other persistent atrial fibrillation; T82.599A Other mechanical complication of unspecified cardiac and vascular devices and implants, initial encounter; I47.20 Ventricular tachycardia, unspecified; R32 Unspecified urinary incontinence; E78.5 Hyperlipidemia, unspecified; E87.5 Hyperkalemia; M50.30 Other cervical disc degeneration, unspecified cervical region; Y71.3 Surgical instruments, materials and cardiovascular devices (including sutures) associated with adverse incidents; K59.09 Other constipation; I34.0 Nonrheumatic mitral (valve) insufficiency; K52.9 Noninfective gastroenteritis and colitis, unspecified; N18.30 Chronic kidney disease, stage 3 unspecified; Z95.810 Presence of automatic (implantable) cardiac defibrillator; Z88.0 Allergy status to penicillin; Z88.2 Allergy status to sulfonamides; Z79.899 Other long term (current) drug therapy; Z90.89 Acquired absence of other organs; Z90.49 Acquired absence of other specified parts of digestive tract
CPT/HCPCS: 36415; 36416; 51701; 71045; 74177; 76705; 80048; 80053; 80076; 80202; 80306; 80307; 81001; 83605; 83735; 83880; 84145; 84484; 85025; 87040; 87077; 87086; 87186; 87428; 93005; 93798; 94640; 96374; 96375; J0692; J1720; J1940; J2405; J2470; J3370; J3475; J3480; J7030; J7050; J7620; P9047; Q9967